=== PATIENT | male | born 1955 | race Caucasian/White ===

== ENCOUNTER 2018-12-25 15:55 | Emergency (ER) | payer OTHER ==
[2018-12-25] MEDS ORDERED: KETOROLAC 30 MG/ML INJ ONE (17:43)
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
== END 2018-12-25 18:57 | disposition home or self-care (01) ==
LOC: ER 15:55
DX: M54.17 Radiculopathy, lumbosacral region (principal); M54.6 Pain in thoracic spine; M54.2 Cervicalgia; I10 Essential (primary) hypertension; V49.40XA Driver injured in collision with unspecified motor vehicles in traffic accident, initial encounter; Z79.82 Long term (current) use of aspirin; Z88.0 Allergy status to penicillin
CPT/HCPCS: 72040; 72070; 72100; 96372; 99283

== ENCOUNTER 2022-11-20 23:06 | Emergency (ER) | payer OTHER ==
[2022-11-21] MEDS ORDERED: HYDROCODONE/APAP 7.5/325 MG TAB ONE (00:12)
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
[2022-11-21 02:22] VITALS: TEMP 98.5
[2022-11-21 02:26] VITALS: BP 137/97; O2SAT 97
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
== END 2022-11-21 02:09 | disposition home or self-care (01) ==
LOC: ER 23:06
DX: R29.91 Unspecified symptoms and signs involving the musculoskeletal system (principal); M54.2 Cervicalgia; I10 Essential (primary) hypertension; F17.290 Nicotine dependence, other tobacco product, uncomplicated; Z88.0 Allergy status to penicillin
CPT/HCPCS: 72125; 72128; 72131; 99284

== ENCOUNTER 2023-04-25 18:22 | Inpatient (IN) | payer OTHER ==
--- NOTE | 2023-04-25 19:39 | RAD REPORT ---
EXAM DESCRIPTION: RAD - Chest Single View - 04/25/2023 7:28 pm CLINICAL HISTORY: DYSPNEA Chest pain. FINDINGS: Portable technique limits examination quality. Moderate bilateral pulmonary opacities likely representing pulmonary edema. The heart is significantl y enlarged. No displaced fractures.Cervical hardware plate. IMPRESSION: Moderate CHF.
[2023-04-25] MEDS ORDERED: NITROGLYCERIN 1 GM PKT TD ONE (19:40)
[2023-04-25] MEDS ORDERED: MORPHINE 4 MG/ML SYR ONE (19:41)
[2023-04-25] MEDS ORDERED: FUROSEMIDE 40 MG/4 ML VIAL ONE (19:41)
[2023-04-25 19:56] LABS: Absolute Lymphocytes (CBC) 1.2 K/uL (0.7-4.9); Hematocrit 36.9 % (39.6-49.0); Lymphocytes % 13.3 % (15.3-44.8); Platelets 282 thou/uL (152-406); RBC Red Blood Cell Count 4.45 M/uL (4.33-5.43)
[2023-04-25 20:16] LABS: Protime INR 1.24
[2023-04-25 20:17] LABS: Albumin 3.1 g/dL (3.4-5.0); Bilirubin Total 0.8 mg/dL (0.2-1.0); Potassium 4.4 mEq/L (3.5-5.1); Protein, Total 6.6 g/dL (6.4-8.2); Troponin High Sensitivity 54.9 pg/mL (<58.9)
--- NOTE | 2023-04-25 20:29 | EDPHYS ---
Physician Documentation [facility] Name: Wu Junior Age: 67 yrs Sex: Male : 1955 Arrival Date: 04/25/2023 Time: 18:22 Bed 18 Private MD: ED Physician Christopher Charles HPI: 04/25 19:46 This 67 yrs old Male presents to ER via Ambulatory with complaints of Covid+, Breathing snw Difficulty, Swelling. 19:46 Onset: The symptoms/episode began/occurred acutely, and became worse today, and became snw persistent. Associated signs and symptoms: Pertinent positives: constipation, swelling. The patient has not experienced similar symptoms in the past. The patient has not recently seen a physician, and does not have an established primary care provider. Historical: - Allergies: 19:10 PENICILLINS; hb - PMHx: 19:10 Hypertension; Back pain; hb - PSHx: 19:10 neck; back; hb - Immunization history:: Adult Immunizations up to date. - Social history:: Smoking status: Patient denies any tobacco usage or history of. ROS: 19:45 Constitutional: Negative for fever, chills, and weight loss, Eyes: Negative for injury, snw pain, redness, and discharge, ENT: Negative for injury, pain, and discharge, Neck: Negative for injury, pain, and swelling, Cardiovascular: Negative for chest pain, palpitations, and edema, 19:45 Back: Negative for injury and pain, : Negative for injury, bleeding, discharge, and swelling, Skin: Negative for injury, rash, and discoloration, Neuro: Negative for headache, weakness, numbness, tingling, and seizure, Psych: Negative for depression, anxiety, suicide ideation, homicidal ideation, and hallucinations, 19:45 Respiratory: Positive for cough, shortness of breath, at rest. 19:45 Abdomen/GI: Positive for constipation, abdominal distension, 19:45 MS/extremity: Positive for swelling, of the pelvis, right leg and left leg, Exam: 19:02 Head/Face: Normocephalic, atraumatic. Eyes: Pupils equal round and reactive to light, snw extra-ocular motions intact. Lids and lashes normal. Conjunctiva and sclera are non-icteric and not injected. Cornea within normal limits. Periorbital areas with no swelling, redness, or edema. ENT: Nares patent. No nasal discharge, no septal abnormalities noted. Tympanic membranes are normal and external auditory canals are clear. Oropharynx with no redness, swelling, or masses, exudates, or evidence of obstruction, uvula midline. Mucous membranes moist. Neck: Trachea midline, no thyromegaly or masses palpated, and no cervical lymphadenopathy. Supple, full range of motion without nuchal rigidity, or vertebral point tenderness. No Meningismus. Chest/axilla: Normal chest wall appearance and motion. Nontender with no deformity. No lesions are appreciated. 19:02 Back: No spinal tenderness. No costovertebral tenderness. Full range of motion. MS/ Extremity: Pulses equal, no cyanosis. Neurovascular intact. Full, normal range of motion. Neuro: Awake and alert, GCS 15, oriented to person, place, time, and situation. Cranial nerves II-XII grossly intact. Motor strength 5/5 in all extremities. Sensory grossly intact. Cerebellar exam normal. Normal gait. 19:02 Constitutional: The patient appears awake, anxious, diaphoretic, obese, uncomfortable, moderate respiratory distress. usually on 1L O2 per NC 19:02 Cardiovascular: Rate: tachycardic, Heart sounds: normal, Edema: 3+ edema to level of pubic area, left upper thigh, left lower thigh, left knee, left midcalf, left ankle, right upper thigh, right lower thigh, right knee, right midcalf and right ankle, JVD: is noted bilaterally, 19:02 Respiratory: moderate respiratory distress is noted, Respirations: pursed lip breathing, shallow respirations, orthopnea, 19:02 Abdomen/GI: Inspection: distension, that is mild, obese Palpation: bloated, 19:02 Skin: Appearance: Color: dusky, Moisture: diaphoretic, Vital Signs: 19:06 BP 223 / 123; Pulse 79; Resp 24; Temp 98.9(O); Pulse Ox 96% on 2 lpm NC; Weight 79.38 hb kg; Height 5 ft. 9 in. ; Pain 5/10; 20:22 BP 164 / 113; Pulse 108; Resp 22 S; Pulse Ox 99% on 2 lpm NC; as6 21:20 BP 167 / 114; Pulse 103; Resp 19 S; Pulse Ox 96% on 2 lpm NC; as6 22:47 BP 148 / 109; Pulse 101; Resp 19 S; Pulse Ox 97% on 2 lpm NC; as6 19:06 Body Mass Index 25.84 (79.38 kg, 175.26 cm) hb 19:06 Pain Scale: Adult hb MDM: 18:51 Patient medically screened. snw 19:05 Differential diagnosis: viral Infection, bacterial infection, CHF. Data reviewed: vital snw signs, nurses notes, lab test result(s), EKG, radiologic studies. I considered the following discharge prescriptions or medication management in the emergency department Medications were administered in the Emergency Department. See AUG. 20:29 Management of patient was discussed with the following: Hospitalist: Dr. Irwin. snw Counseling: I had a detailed discussion with the patient and/or guardian regarding the historical points, exam findings, and any diagnostic results supporting the discharge/admit diagnosis, the presence of at least one elevated blood pressure reading (>120/80) during this emergency department visit, lab results, radiology results, the need for further work-up and treatment in the hospital. Response to treatment: the patient's symptoms have mildly improved after treatment. 04/25 19:02 Order name: Blood Culture Adult (2) snw 04/25 19:02 Order name: CBC with Diff; Complete Time: 20:12 snw 04/25 19:02 Order name: CMP; Complete Time: 20:18 snw 04/25 19:02 Order name: Lactate w/ 2H reflex if indic.; Complete Time: 20:18 snw 04/25 19:02 Order name: Protime (+inr); Complete Time: 20:18 snw 04/25 19:02 Order name: Ptt, Activated; Complete Time: 20:18 snw 04/25 19:02 Order name: Urinalysis w/ reflexes snw 04/25 19:02 Order name: COVID-19 SARS RT PCR; Complete Time: 20:33 snw 04/25 19:02 Order name: Troponin High Sensitivity; Complete Time: 20:18 snw 04/25 19:02 Order name: BNP; Complete Time: 20:18 snw 04/25 20:45 Order name: CBC with Automated Diff EDMS 04/25 20:45 Order name: CBC with Automated Diff EDMS 04/25 20:45 Order name: Comprehensive Metabolic Panel EDMS 04/25 20:45 Order name: Comprehensive Metabolic Panel EDVT 04/25 19:02 Order name: Chest Single View XRAY; Complete Time: 19:40 snw 04/25 19:02 Order name: EKG; Complete Time: 19:03 snw 04/25 19:02 Order name: Accucheck; Complete Time: 20:14 snw 04/25 19:02 Order name: Cardiac monitoring; Complete Time: 20:14 snw 04/25 19:02 Order name: EKG - Nurse/Tech; Complete Time: 20:14 snw 04/25 19:02 Order name: IV Saline Lock - Large Bore; Complete Time: 20:14 snw 04/25 19:02 Order name: Labs collected and sent; Complete Time: 20:14 snw 04/25 19:02 Order name: O2 Per Protocol; Complete Time: 20:14 snw 04/25 19:02 Order name: O2 Sat Monitoring; Complete Time: 20:14 snw 04/25 19:02 Order name: Vital Signs; Complete Time: 19:20 snw 04/25 19:41 Order name: Townsend; Complete Time: 21:57 snw EC:30 Rate is 98 beats/min. Rhythm is regular. AR interval is normal. T waves are Inverted in snw leads V5, V6. T waves are Flattened in leads I, II, III, aVF. Clinical impression: NSR w/ Non-specific ST/T Changes. Administered Medications: 19:30 Drug: Nitroglycerin Transdermal Ointment 2 % 1 inches Transdermal once Route: as6 Transdermal; Site: anterior chest wall; 23:16 Follow up: Response: No adverse reaction as6 19:40 Drug: Furosemide IVP 40 mg IVP once; give over 2 minutes Route: IVP; Site: right as6 antecubital; 23:16 Follow up: Response: No adverse reaction as6 19:40 Drug: morphine IVP or IV 4 mg IVP once over 4 mins Route: IVP; Infused Over: 4 mins; as6 Site: right antecubital; 23:16 Follow up: Response: No adverse reaction as6 Disposition Summary: 04/25/23 20:29 Hospitalization Ordered Notes: Hospitalization Status: Inpatient Admission snw Provider: Victor Manuel Irwin Location: Telemetry/MedSurg (Inpatient) snw Condition: Fair snw Problem: new snw Symptoms: have improved snw Bed/Room Type: Standard snw Room Assignment: 417(04/25/23 23:01) mw Diagnosis - SARS-associated coronavirus as the cause of diseases classified elsewhere snw - Acute diastolic (congestive) heart failure snw Forms: - Medication Reconciliation Form snw - SBAR form snw - Leadership Thank You Letter snw Critical care time excluding procedures: 04/26 09:14 Critical care time: Bedside Care: 10 minutes, Consultation: 20 minutes. Total time: 30 snw minutes Addendum: 04/29/2023 07:50 I was immediately available for consultation during this patient's visit. I did not e c2 personally see the patient or guide the patient's care.. Signatures: Dispatcher [employer] Jackie Padilla RN RN mw Waters, Shelly, ELECTRONIC VIDEO GAMES SERVICER-C ELECTRONIC VIDEO GAMES SERVICER-Csnw Rama Piña RN RN Chaz Person RN RN as6 Christopher Charles MD MD ec2 Corrections: (The following items were deleted from the chart) 04/25 23:01 20:29 snw mw
--- NOTE | 2023-04-25 20:29 | ER ---
Nurse's Notes [facility] Name: Wu Junior Age: 67 yrs Sex: Male : 1955 Arrival Date: 04/25/2023 Time: 18:22 Bed 18 Private MD: Diagnosis: SARS-associated coronavirus as the cause of diseases classified elsewhere;Acute diastolic (congestive) heart failure Presentation: 04/25 19:06 Chief complaint: Worsening SOB requiring increased oxygen use, cough, malaise,and fever hb x 1 week, recently tested COVID +. Coronavirus screen: Client presents with at least one sign or symptom that may indicate coronavirus-19. Provider contacted for isolation considerations. Ebola Screen: No symptoms or risks identified at this time. Initial Sepsis Screen: Does the patient meet any 2 criteria? No. Patient's initial sepsis screen is negative. Does the patient have a suspected source of infection? No. Patient's initial sepsis screen is negative. Risk Assessment: Do you want to hurt yourself or someone else? Patient reports no desire to harm self or others. Onset of symptoms was April 19, 2023. 19:06 Method Of Arrival: Ambulatory hb 19:06 Acuity: BRENDA 2 hb Historical: - Allergies: 19:10 PENICILLINS; hb - PMHx: 19:10 Hypertension; Back pain; hb - PSHx: 19:10 neck; back; hb - Immunization history:: Adult Immunizations up to date. - Social history:: Smoking status: Patient denies any tobacco usage or history of. Screenin:17 [facility] ED Fall Risk Assessment (Adult) Mobility Assist Device Used Yes (1 pt) as6 Score/Fall Risk Level 0 - 2 = Low Risk. Abuse screen: Denies threats or abuse. Denies injuries from another. Nutritional screening: No deficits noted. Tuberculosis screening: No symptoms or risk factors identified. Assessment: 19:30 General: Appears uncomfortable, ill, Behavior is calm, cooperative. Pain: Complains of as6 pain in back, right leg and left leg. Neuro: Level of Consciousness is awake, alert, obeys commands, Oriented to person, place, time, situation. Cardiovascular: Capillary refill < 3 seconds Patient's skin is warm and dry. Edema is 2+ to left midcalf, left ankle, left foot, left toes, right midcalf, right ankle, right foot and right toes pitting to left midcalf, left ankle, left foot, left toes, right midcalf, right ankle, right foot and right toes. Respiratory: Reports shortness of breath Airway is patent Trachea midline Respiratory effort is even, labored, Respiratory pattern is regular, symmetrical, Breath sounds with crackles bilaterally. GI: Abdomen is round. : Reports inability to void. EENT: No deficits noted. No signs and/or symptoms were reported regarding the EENT system. Derm: Skin is intact. Musculoskeletal: Circulation, motion, and sensation intact. Vital Signs: 19:06 BP 223 / 123; Pulse 79; Resp 24; Temp 98.9(O); Pulse Ox 96% on 2 lpm NC; Weight 79.38 hb kg; Height 5 ft. 9 in. ; Pain 5/10; 20:22 BP 164 / 113; Pulse 108; Resp 22 S; Pulse Ox 99% on 2 lpm NC; as6 21:20 BP 167 / 114; Pulse 103; Resp 19 S; Pulse Ox 96% on 2 lpm NC; as6 22:47 BP 148 / 109; Pulse 101; Resp 19 S; Pulse Ox 97% on 2 lpm NC; as6 19:06 Body Mass Index 25.84 (79.38 kg, 175.26 cm) hb 19:06 Pain Scale: Adult hb ED Course: 18:27 Patient arrived in ED. mr 18:34 Jaclyn Bonita, AUDREY-C is PHCP. snw 18:34 Christopher Charles MD is Attending Physician. snw 19:09 Triage completed. hb 19:10 Arm band placed on. hb 19:20 Chaz Person, RN is Primary Nurse. as6 19:30 Chest Single View XRAY In Process Unspecified. EDMS 19:30 Inserted saline lock: 18 gauge in right antecubital area, using aseptic technique. as6 Blood collected. 20:16 Bed in low position. Call light in reach. as6 20:28 Victor Manuel Irwin MD is Hospitalizing Provider. snw 21:57 Townsend cath inserted, using sterile technique, 16 Fr., by ne, balloon inflated, to as6 gravity drainage, urine specimen collected. returned clear yellow urine. Patient tolerated well. 21:57 No provider procedures requiring assistance completed. Patient admitted, IV remains in as6 place. 22:47 Provided Education on: need for admit. as6 Administered Medications: 19:30 Drug: Nitroglycerin Transdermal Ointment 2 % 1 inches Transdermal once Route: as6 Transdermal; Site: anterior chest wall; 23:16 Follow up: Response: No adverse reaction as6 19:40 Drug: Furosemide IVP 40 mg IVP once; give over 2 minutes Route: IVP; Site: right as6 antecubital; 23:16 Follow up: Response: No adverse reaction as6 19:40 Drug: morphine IVP or IV 4 mg IVP once over 4 mins Route: IVP; Infused Over: 4 mins; as6 Site: right antecubital; 23:16 Follow up: Response: No adverse reaction as6 Medication: 20:16 VIS not applicable for this client. as6 Outcome: 20:29 Decision to Hospitalize by Provider. [facility] 22:47 Condition: stable as6 22:47 Instructed on the need for admit, 23:16 Admitted to Tele accompanied by tech, via stretcher, room 417, with oxygen, with chart, as6 23:32 Patient left the ED. as6 Signatures: Dispatcher [employer] EDMS Bonita Anaya, AUDREY-C ASL INTERPRETER-Stephanie Nieto, Reg Reg mr Rama Piña, Chaz Farias RN, RN RN as6
[2023-04-25] MEDS ORDERED: ONDANSETRON 4 MG/2 ML VIAL IV PRN (20:36)
--- NOTE | 2023-04-25 20:46 | P.HP ---
Certification for Inpatient Patient admitted to: Inpatient With expected LOS: >2 Midnights Patient will require the following post-hospital care: None Practitioner: I am a practitioner with admitting privileges, knowledge of patient current condition, hospital course, and medical plan of care. Services: Services provided to patient in accordance with Admission requirements found in Title 42 Section 412.3 of the Code of Federal Regulations Patient History Date of Service: 04/25/23 Reason for admission: SOB History of Present Illness: 67 yrs old Male with hypertension chronic back pain presents to ER via Ambulatory with complaints of shortness of breath after testing positive for Covid, Denies any chest pain. Patient states that she was tested positive for COVID in a outside facility. Patient started having shortness of breath which has been progressively worsening over the last few days. Denies any fever or chills. No chest pain. Associated with lower extremities swelling and constipation. Patient denies any nausea vomiting or diarrhea. No sick contacts. Patient was assessed in the ER and was found to have CHF exacerbation along with accelerated hypertension. The COVID test done in the ER was negative. X-ray chest showing CHF Home medications list reviewed: Yes - Past Medical/Surgical History Past Medical History: Reviewed- Non-Contributory -: Hypertension Past Surgical History: Reviewed- Non-Contributory - Family History Family History: Reviewed- Non-Contributory - Social History Smoking Status: Never smoker Review of Systems 10-point ROS is otherwise unremarkable General: Weakness, Malaise Eyes: Unremarkable ENT: Unremarkable Respiratory: Shortness of Breath, SOB with Excertion, Unremarkable Cardiovascular: Unremarkable Gastrointestinal: Unremarkable Genitourinary: Unremarkable Musculoskeletal: Unremarkable Integumentary: Unremarkable Neurological: Unremarkable Physical Examination - Vital Signs Temperature: 98.8 F Blood Pressure: 164/108 Pulse: 78 Respirations: 18 Pulse Ox (%): 96 - Physical Exam General: Alert, Oriented x3, Mild distress HEENT: Atraumatic, Normocephalic Neck: Supple, 2+ carotid pulse no bruit Respiratory: Diminished, Crackles/rales, Expiratory wheezes Cardiovascular: Normal pulses, Regular rate/rhythm, Normal S1 S2, Edema Capillary refill: <2 Seconds Gastrointestinal: Soft and benign, W/out hepatosplenomegaly, No ascites, No guarding Musculoskeletal: No clubbing, No swelling Integumentary: No rashes Neurological: Normal speech, Normal strength at 5/5 x4 extr, Cranial nerves 3-12 intact, Normal reflexes 2+, Normal affect Lymphatics: No axilla or inguinal lymphadenopathy Urinary: Townsend catheter - Studies Laboratory Data (last 24 hrs) 04/25/23 04/25/23 04/25/23 19:43 19:43 19:43 WBC 8.90 Hgb 12.1 L Hct 36.9 L Plt Count 282 PT 13.6 H INR 1.24 APTT 30.4 Sodium 135 L Potassium 4.4 BUN 25 H Creatinine 1.62 H Glucose 106 Total Bilirubin 0.8 AST 21 ALT 33 Alkaline Phosphatase 88 Assessment and Plan - Problems (Diagnosis) (1) Acute exacerbation of CHF (congestive heart failure) Current Visit: Yes Status: Acute Plan: Aggressive diuresis Monitor closely under telemetry We will get an echocardiogram BNP elevated We will start on Antifailure medications including Coreg Qualifiers: Heart failure type: combined systolic and diastolic Qualified Code(s): I50.43 - Acute on chronic combined systolic (congestive) and diastolic (congestive) heart failure (2) Accelerated hypertension Current Visit: Yes Status: Acute Plan: Patient started on Coreg and hydralazine p.o. IV hydralazine as needed Monitor closely in telemetry (3) Hyponatremia Current Visit: Yes Status: Acute Plan: Monitor electrolytes and replace accordingly (4) SANTINO (acute kidney injury) Current Visit: Yes Status: Acute Plan: Renal parameters monitored Avoid NSAIDs and other nephrotoxic medications We will hold ARB versus CHANTALE inhibitor for now (5) COVID Current Visit: Yes Status: Acute Plan: COVID test negative in ER Patient states that she has been tested positive as an outpatient Monitor closely (6) Acute hypoxic respiratory failure Current Visit: Yes Status: Acute Plan: On oxygen supplementation We will try to wean down oxygen requirement Bronchodilators as needed continue diuretics Discharge Plan: Home Plan to discharge in: 48 Hours - Advance Directives Does patient have a Living Will: No Does patient have a Durable POA for Healthcare: No - Code Status/Comfort Care Code Status: Full Code Physician Review: Patient Assessed, Agree with Above Assessment and Plan Time Spent Managing Pts Care (In Minutes): 45
[2023-04-25 23:01] LABS: Specific Gravity 1.008 (1.005-1.030); Urine Bacteria <20 /HPF (<20); Urine Bilirubin NEGATIVE (Negative); Urine Blood Negative (Negative); Urine Clarity Clear (Clear); Urine Color Colorless (Yellow); Urine Glucose NEGATIVE (Negative); Urine Mucus Slight /HPF (None Seen); Urine Protein 1+ (Negative); Urine RBC <5 /HPF (None Seen); Urine Urobilinogen Normal (Normal); Urine pH 5.5 (5.0-7.0)
[2023-04-26] MEDS: HYDRALAZINE HCL 25 MG TABLET PO SCH ×4 (00:51→21:32)
[2023-04-26] MEDS: FUROSEMIDE 40 MG/4 ML VIAL IV SCH ×3 (00:51→17:59)
[2023-04-26] MEDS: carvediloL 6.25 MG TAB PO SCH ×3 (00:51→21:32)
[2023-04-26 04:41] VITALS: BMI 25.8
[2023-04-26 07:27] LABS: Absolute Lymphocytes (CBC) 0.7 K/uL (0.7-4.9); Hematocrit 35.5 % (39.6-49.0); Lymphocytes % 6.6 % (15.3-44.8); MCV 83.8 fL (80-100); MPV 7.9 fL (7.6-11.3); Platelets 282 thou/uL (152-406); RBC Red Blood Cell Count 4.24 M/uL (4.33-5.43)
[2023-04-26 07:45] LABS: Albumin 2.9 g/dL (3.4-5.0); Bilirubin Total 0.8 mg/dL (0.2-1.0); Protein, Total 6.1 g/dL (6.4-8.2)
--- NOTE | 2023-04-26 10:04 | P.PN ---
Date of Service: 04/26/23 Subjective: Feeling much better today compared to yesterday; breathing more comfortable, swelling improving short of breath overnight per report; O2 was increased to 4L overnight; back down to 2L this morning tested positive for covid ~2 weeks ago; negative in ED BP improving reports suddenly developed swelling from abdomen down to feet after fleet enema this past Monday ROS: 10 point ROS as noted above, otherwise negative Physical Exam: GEN: Alert, oriented, NAD HEENT: Normal conjunctiva, sclera anicteric CV: Regular rate and rhythm, 2+ BLE edema up to thighs bilaterally Pulm: Non-labored respirations on 2L NC, diminished at bases b/l, +b/l crack les/rales ABD: Soft, non-tender, non-distended Neuro: Normal speech, normal affect Townsend in place; placed 04/25 in ED vitals reviewed Problem List: Acute CHF, new Essential Hypertension, with HTN urgency SANTINO Recent COVID-19 Positive Chronic back pain Constipation Acute CHF , new Essential Hypertension, with htn urgency reports swelling suddenly developed after Fleet enema a few days prior to admission; denies prior CHF diagnosis / swelling CXR (04/25): moderate CHF trend troponins; monitor on tele BNP: [id number] Cardiology consulted Continue IV lasix change to BID from TID for now, monitor response/ renal function Echo done 04/26; pending report on 2L NC; wean oxygen as tolerated Townsend placed 04/25 in ED for accurate I/O's Breathing/swelling improving confirm home meds, restart as appropriate avoid nephrotoxic meds for now SANTINO Cr 1.62 -> 1.71 denies renal history. but does report >10yrs ago having kidney stones, no recurrence. continue to monitor renal function nephrology consulted Recent COVID-19 Positive Patient reports he tested positive for covid ~1 week ago; negative today in ER Code: Full Dispo: Home, ~2 days Pending further improvement
--- NOTE | 2023-04-26 20:53 | RAD REPORT ---
EXAM DESCRIPTION: US - Renal Ultrasound-Complete - 04/26/2023 8:38 pm CLINICAL HISTORY: keyla Flank pain COMPARISON: Spine Lumbar Wo Con dated 11/21/2022 FINDINGS: The right kidney is highly echogenic. The right kidney is significantly atrophic. The left kidney measures 13.2 x 6.2 x 5.7 cm. No hydronephrosis, focal mass or perinephric fluid. The urinary bladder is incompletely distended without gross abnormality seen. IMPRESSION: Highly echogenic and atrophic right kidney indicating medical renal disease and likely a lack of function. The left kidney has a normal appearance.
[2023-04-27 07:03] LABS: Absolute Lymphocytes (CBC) 1.3 K/uL (0.7-4.9); Hematocrit 36.5 % (39.6-49.0); Lymphocytes % 17.9 % (15.3-44.8); MPV 8.1 fL (7.6-11.3); Platelets 282 thou/uL (152-406); RBC Red Blood Cell Count 4.34 M/uL (4.33-5.43)
[2023-04-27 07:15] LABS: Magnesium 2.4 mg/dL (1.6-2.4); Potassium 3.8 mEq/L (3.5-5.1)
--- NOTE | 2023-04-27 10:09 | P.PN ---
Date of Service: 04/27/23 Subjective: Feeling better today Breathing okay on room air at rest; worsened with talking/exertion no acute events overnight swelling in legs slowly improving afebrile ROS: 10 point ROS as noted above, otherwise negative Physical Exam: GEN: Alert, oriented, NAD HEENT: Normal conjunctiva, sclera anicteric CV: Regular rate and rhythm, 1+ BLE edema up to knee bilaterally Pulm: Non-labored respirations on room air at rest, diminished at bases b/l, +b/l crackles/rales ABD: Soft, non-tender, non-distended Neuro: Normal speech, normal affect Townsend in place; placed 04/25 in ED vitals reviewed Problem List: Acute diastolic CHF, new Essential Hypertension, with HTN urgency Severe Pulmonary Hypertension SANTINO Recent COVID-19 Positive Chronic back pain Constipation Acute diastolic CHF, new Essential Hypertension, with HTN urgency Severe Pulmonary Hypertension reports swelling suddenly developed after Fleet enema a few days prior to admission; denies prior CHF diagnosis / swelling CXR (04/25): moderate CHF trend troponins; monitor on tele BNP: echo (04/26): 42% EF, moderate concentric left ventricular hypertrophy, mod diastolic dysfunction, left atrial enlargement, mild TR, mild MR, mild pulmonic insufficiency, moderate aortic insufficiency, severe pulm htn Cardiology consulted Discussed case over phone with Dr. Ortiz, to consider for right and left heart cath for further evaluation - PHTN / CAD Continue IV lasix BID change to BID from TID 04/26, monitor response/ renal function Townsend placed 04/25 in ED for accurate I/O's Breathing/swelling improving confirm home meds, restart as appropriate avoid nephrotoxic meds for now SANTINO Cr 1.71 -> 1.91 (04/27) denies renal history. but does report >10yrs ago having kidney stones, no recu rrence. later said had "right kidney decreased function" renal u/s (04/26): Highly echogenic and atrophic right kidney indicating medical renal disease and likely a lack of function. continue to monitor renal function nephrology consulted bicarb drip and prep for possible cath Recent COVID-19 Positive Patient reports he tested positive for covid ~1 week ago; negative today in ER Code: Full Dispo: Home, ~2 days Pending further improvement
--- NOTE | 2023-04-27 11:04 | ECHO ---
HEIGHT: 5 ft 9 in WEIGHT: 175 lb 0 oz DATE OF STUDY: 04/26/[address]: Loi Heck MD 2-DIMENSIONAL: YES M.MODE: YES DOPPLER: YES COLOR FLOW: YES TDS: PORTABLE: YES DEFINITY: BUBBLE STUDY: DIAGNOSIS: CONGESTIVE HEART FAILURE, ELAVUATE FUNCTION/ VALVES CARDIAC HISTORY: CATHERIZATION: NO SURGERY: NO PROSTHETIC VALVE: NO PACEMAKER: NO MEASUREMENTS (cm) DIASTOLIC (NORMALS) SYSTOLIC (NORMALS) IVSd 1.6 (0.6-1.2) LA Diam 4.1 (1.9-4.0) LVEF 45% LVIDd 4.1 (3.5-5.7) LVIDs 3.2 (2.0-3.5) %FS 22% LVPWd 1.7 (0.6-1.2) Ao Diam 2.9 (2.0-3.7) 2 DIMENSIONAL ASSESSMENT: RIGHT ATRIUM: NORMAL LEFT ATRIUM: ENLARGED RIGHT VENTRICLE: NORMAL LEFT VENTRICLE: LEFT VENTRICULAR HYPERTROPHY TRICUSPID VALVE: MILD TRICUSPID REGURGITATION MITRAL VALVE: MILD MITRAL REGURGITATION PULMONIC VALVE: MILD PULMONIC INSUFFICIENCY AORTIC VALVE: CALCIFIED, NO AORTIC STENOSIS PERICARDIAL EFFUSION: NONE AORTIC ROOT: NORMAL LEFT VENTRICULAR WALL MOTION: MILD GLOBAL HYPOKINESIS DOPPLER/COLOR FLOW: SEE BELOW COMMENTS: 1. MILDLY DEPRESSED LEFT VENTRICULAR EJECTION FRACTION 45-50% WITH MILD GLOBAL HYPOKINESIS 2. MODERATE CONCENTRIC LEFT VENTRICULAR HYPERTROPHY 3. MODERATE DIASTOLIC DYSFUNCTION 4. LEFT ATRIAL ENLARGEMENT 5. MILD TRICUSPID REGURGITATION, MITRAL REGURGITATION, PULMONIC INSUFFICIENCY 6. MODERATE AORTIC INSUFFICIENCY 7. SEVERE PULMONARY HYPERTENSION WITH RIGHT VENTRICULAR SYSTOLIC PRESSURE GREATER THAN 60 mmHg TECHNOLOGIST: MICHELLE VITAL
[2023-04-27] MEDS: carvediloL 6.25 MG TAB PO SCH ×2 (11:16→21:05)
[2023-04-27] MEDS: FUROSEMIDE 40 MG/4 ML VIAL IV SCH ×2 (11:17→17:54)
[2023-04-27] MEDS: HYDRALAZINE HCL 25 MG TABLET PO SCH ×3 (11:21→21:05)
[2023-04-27] MEDS: ACETAMINOPHEN 500 MG TAB PO PRN ×2 (11:22→21:04)
--- NOTE | 2023-04-27 16:39 | CON ---
Date of Consultation: 04/27/2023 Reason For Consultation: Elevated BUN and creatinine, anasarca. History Of Present Illness: This is a pleasant 67-year-old gentleman with significant past medical h istory of hypertension, nephrolithiasis, questionable of poor function right kidney as by the patient , the patient had no other kidney history before. No cardiac history according to the patient. The patient was in his regular state of health. Apparently, he went to the pharmacy to obtain his COVID vaccine. Pharmacy found him has some symptoms, tested positive for COVID so vaccine was canceled and the patient sent home. The patient at home started having some constipation according to the patien t with abdominal pain. For that reason, started using [id number] remedy including Dulcolax, Mi raLAX without any success and eventually he used Fleet enema. After the Fleet enema by couple of mainor rs the patient started having increased abdominal girth, swelling in the scrotum and lower extremity according to him in couple of hours. The patient denied taking any nonsteroidal. No contrast. No r ecent change in his medication. The patient upon arrival to the hospital found to have elevation in BUN and creatinine. For that reason, we have been consulted. Creatinine came as 1.6 with GFR of 47. Gradually creatinine trended up to 1.9 with GFR of 38. For that reason, we have been consulted. R eviewing the record for the patient, as I mentioned, the patient known to have poor perfusion or poor function right kidney since has nephrolithiasis, but does not know any other abnormality in the kidn ey and he never followed up with shipping lead. Back in 2017, creatinine 1.1 with GFR of 63. Past Medical History: 1.Nephrolithiasis, status post lithotripsy back in 2007. 2.Hypertension. 3.Congestive heart failure, has been confirmed with echocardiogram in this admission with ejection f raction of 45%, with severe pulmonary hypertension. 4.COVID. Past Surgical History: Includes lithotripsy. Family History: Positive for hypertension. Social History: Ex-smoker. Active alcohol. Denied drug abuse. Review of Systems: Head and Neck: No red eye. No ear pain. GI: Has constipation. : Has increased swelling in scrotum. Mainstreaming Facilitator: Not applicable. Respiratory: Has shortness of breath. Cardiovascular: Has leg swelling, has orthopnea. Endocrine: No polydipsia. Skin: No rash. Neuro: No weakness. Musculoskeletal: Generalized fatigue. Physical Examination: Vital Signs: When I saw the patient, blood pressure 116/75, pulse of 71, afebrile. Chest: Faint rales bilateral base. Heart: S1, S2, systolic murmur. Abdomen: Soft, nontender. Extremities: Plus edema bilaterally. Neurologic: Alert, oriented x3. Nonfocal. Lab Data: Back in 2017, creatinine 1.1. GFR of 63. Upon admission, sodium 135, potassium 4.4, bica rb 23, BUN 25, creatinine 1.6, GFR of 47. Today lab data, sodium 136, potassium 3.8, bicarb 28, BUN 34, creatinine 1.9, GFR of 38. Calcium 8.5, magnesium 2.4. BNP 21,189. LDL 146. Urinalysis, speci fic gravity of 1.008. Positive for cast. No leukouria or hematuria. +1 protein. Chest x-ray showi ng cardiomegaly with congestion, bilateral. Renal ultrasound showing atrophy right kidney with byron l size on the left kidney. Echocardiogram, ejection fraction of 45% with severe pulmonary hypertensi on. Assessment And Plan: 1.Acute kidney injury on chronic kidney disease, solitary kidney atrophy right kidney, normal left k idney 13.2, with acute kidney injury, possible secondary to AIN, questionable of Fleet induced agonis t. Send for phosphorus level and urine eosinophil. We will send for workup and we will follow up th e patient. I am going to start the patient on aggressive hydration for the time being. Possible of cardiorenal, we will continue on the diuresis and we will monitor. 2.The patient may need cardiac cath as by Cardiology, with current kidney function possible risk of continued worsening kidney function. I am going to go ahead and place the patient on Mucomyst and so dium bicarb. I discussed with the patient risks, benefits, alternatives and the risk of contrast exp osure. We will follow up. 3.Hypertension, controlled, optimal, continue diuresis. 4.CHF exacerbation with cardiorenal syndrome. I agree with diuresis. We will avoid any IV fluid. 5.Pulmonary hypertension, possible secondary to smoking. Follow up with primary. 6.Renal vascular disease with atrophy right kidney. We will follow up with Cardiology during the ca rdiac cath if they can run on the renal artery angiogram to evaluate the renal artery and we will fol low up, giving the over volume. 7.Hyponatremia, stable. Dilutional. Continue diuresis. Thank you Dr. Heck for allowing us to participate in the care of your patient. Time spent examining the patient [id number], reviewing data, lab and radiology, placing order, discussing the case with the patient, discussing the case with the team members including hospitalist and staff and nursing s taff more than 35 minutes. CALLIE Voice ID: [id number] Report ID: [id number]
--- NOTE | 2023-04-27 18:17 | P.CNS ---
Date of Consult: 04/27/23 Reason for Consult: CHF Chief Complaint: SOB History of Present Illness: This is a very pleasant 67-year-old male with past medical history of hypertension who is here with worsening shortness of breath and lower extremity edema. He had occasional chest pain on and off in the past described as a pressure but he said he never paid attention to it. He has history of chronic tobacco use on and off for many years and quit in 2017. Patient was found to have SANTINO on CKD and volume overloaded. Echocardiogram showed mildly reduced EF severe pulmonary hypertension moderate AI cardiology was consulted. Patient feels much better since he is being diuresed Allergies amoxicillin Adverse Reaction (Verified 04/26/23 03:17) Hives/Rash Penicillins Adverse Reaction (Verified 04/26/23 03:17) Hives/Rash shrimp Adverse Reaction (Verified 04/26/23 03:17) GI pain Home Medications: Amlodipine [Norvasc*] 10 mg PO 04/26/23 Losartan Potassium [Cozaar] 100 PO DAILY 04/26/23 Rizatriptan Benzoate [Rizatriptan] 10 PO TID 04/26/23 Topiramate [Topamax] 25 PO DAILY 04/26/23 hydroCHLOROthiazide [Hydrochlorothiazide] 25 PO DAILY 04/26/23 - Past Medical/Surgical History -: Hypertension -: Back surgery--1979 -: Neck sugery--2016 - Family History Father Medical History: Hypertension, Diabetes - Social History Smoking Status: Current some day smoker Alcohol use: No CD- Drugs: No Caffeine use: No Place of Residence: Home Review of Systems 10-point ROS is otherwise unremarkable Physical Examination Temp Pulse Resp BP Pulse Ox 98.0 F 61 16 158/77 H 98 04/27/23 16:00 04/27/23 17:54 04/27/23 16:00 04/27/23 17:54 04/27/23 16:00 General: Oriented x3 HEENT: Atraumatic Neck: Supple Respiratory: Clear to auscultation bilaterally Cardiovascular: Regular rate/rhythm, Edema, Diastolic murmur Gastrointestinal: Soft and benign Neurological: Normal speech Conclusions/Impression: 1. CHF: Acute, mildly reduced EF, continue with IV Lasix appreciate nephrology input due to to the SANTINO continue carvedilol. Patient will require ischemic work-up with left heart catheterization and right heart catheterization as he has severe pulmonary hypertension by echo 2. Pulmonary hypertension: He has severe hypertension by echo we will do a right heart catheterization 3. Moderate AI: We will get coronary angiogram as above may need CT of the chest once kidney improved to rule out aneurysm and at some point he may need a DAIJA 4. SANTINO: Unknown baseline creatinine is improving appreciate nephrology 5. Hypertension: Continue carvedilol
[2023-04-28] MEDS ORDERED: NA CHLORIDE 0.9% 1,000 ML IV SCH
[2023-04-28] MEDS: HYDRALAZINE HCL 20 MG/ML VIAL IV PRN (01:40)
--- NOTE | 2023-04-28 08:25 | P.PN ---
Date of Service: 04/28/23 Subjective: Feeling better today Swelling continues to improve Breathing okay on room air tentative plan for left & right heart cath today no acute events overnight ROS: 10 point ROS as noted above, otherwise negative Physical Exam: GEN: Alert, oriented, NAD HEENT: Normal conjunctiva, sclera anicteric CV: Regular rate and rhythm, 1+ BLE edema up to knee bilaterally Pulm: Non-labored respirations on room air at rest, diminished at bases b/l, +b/l crackles/rales ABD: Soft, non-tender, non-distended Neuro: Normal speech, normal affect Townsend in place; placed 04/25 in ED vitals reviewed Problem List: Acute diastolic CHF, new Essential Hypertension, with HTN urgency Severe Pulmonary Hypertension SANTINO on CKD Recent COVID-19 Positive Chronic back pain Constipation Acute diastolic CHF, new Essential Hypertension, with HTN urgency Severe Pulmonary Hypertension Recent COVID-19 Positive reports swelling suddenly developed after Fleet enema a few days prior to admission; denies prior CHF diagnosis / swellingf suspect recent covid infection may have played a role CXR (04/25): moderate CHF troponins negative; monitor on tele BNP: echo (04/26): 42% EF, moderate concentric left ventricular hypertrophy, mod diastolic dysfunction, left atrial enlargement, mild TR, mild MR, mild pulmonic insufficiency, moderate aortic insufficiency, severe pulm htn Cardiology consulted Discussed case over phone with Dr. Ortiz, NPO for tentative left & right heart cath today (04/28) to further eval PHTN/CAD Continue IV lasix BID change to BID from TID 04/26, monitor response/ renal function Townsend placed 04/25 in ED for accurate I/O's continue for now Breathing/swelling improving confirm home meds, restart as appropriate avoid nephrotoxic meds for now pulm consulted SANTINO on CKD Cr 1.91 -> 1.89 (04/28) denies renal history. but does report >10yrs ago having kidney stones, no recurrence. later said had "right kidney decreased function" renal u/s (04/26): Highly echogenic and atrophic right kidney indicating medical renal disease and likely a lack of function. continue to monitor renal function nephrology consulted bicarb drip and prep for possible cath Continue IV fluids Code: Full Dispo: Home, ~2-3 days Pending further improvement, left & right heart cath
[2023-04-28] MEDS: FUROSEMIDE 40 MG/4 ML VIAL IV SCH ×2 (09:34→16:37)
[2023-04-28] MEDS: HYDRALAZINE HCL 25 MG TABLET PO SCH ×3 (09:35→21:00)
[2023-04-28] MEDS: carvediloL 6.25 MG TAB PO SCH ×2 (09:35→21:00)
[2023-04-28 09:58] LABS: Magnesium 2.5 mg/dL (1.6-2.4); Phosphorus 3.5 mg/dL (2.5-4.9)
--- NOTE | 2023-04-28 14:32 | P.PN ---
Subjective Date of Service: 04/28/23 Chief Complaint: SOB Subjective: No new changes Physical Examination - Vital Signs Temperature: 97.8 F Blood Pressure: 132/88 Pulse: 76 Respirations: 18 Pulse Ox (%): 96 - Physical Exam General: Other (appears as his stated age) HEENT: Atraumatic, Normocephalic Neck: Supple Respiratory: Other (symmetric chest expansion) Cardiovascular: No rubs, No murmurs Gastrointestinal: Soft and benign Musculoskeletal: No clubbing Integumentary: No warmth Neurological: Normal tone Urinary: Other (no bladder distention) External genitalia: Deferred Rectal: Deferred Assessment And Plan - Plan 1. Acute kidney injury on chronic kidney disease, solitary kidney atrophy right kidney, normal left kidney 13.2, with acute kidney injury, r/o AIN, SCr plateaued at 1.9. Encourage po fluid intake. 2. Severe pulmo Htn, unclear etiology. For LHC/RHC today. Hx of cig smoking & recent covid infxn. F/u chest CT scan. 3. Hypertension, controlled, optimal, continue diuresis. 4. CHF exacerbation with cardiorenal syndrome. Cont lasix IV bid. Swithc NS gtt to D5W gtt at 75 cc/hr. Avoid Na-containing IV fluid. Use D5W not NS, for IV carrier fluid. Do not limit po fluid intake unless serum Na drops < 130 meq/L. F/u random urine chem to determine need for lc abbie therapy. 5. Renal vascular disease with atrophy right kidney. We will follow up with Cardiology during the cardiac cath if they can run on the renal artery angiogram to evaluate the renal artery and we will follow up, giving the over volume. 6. Hyponatremia. Monitor. Physician Review: Patient Assessed, Agree with Above Assessment and Plan
[2023-04-28] MEDS: D5W 1,000 ML IV SCH (16:38)
--- NOTE | 2023-04-28 18:49 | RAD REPORT ---
EXAM DESCRIPTION: CT - Thorax Wo Con - 04/28/2023 4:22 pm CLINICAL HISTORY: SOB, asses for pna, ILD, pulmo Htn, pulmo fibrosis COMPARISON: Chest Single View dated 04/25/2023; Renal Ultrasound-Complete dated 04/26/2023 TECHNIQUE: Axial thin cut images of the chest were obtained without IV contrast. Multiplanar reforma ts were generated and reviewed. All CT scans are performed using dose optimization technique as appropriate and may include automated exposure control or mA/KV adjustment according to patient size. FINDINGS: Central interstitial prominence with central predominant geographic ground-glass opacities . Trace bilateral effusions. No pleural thickening or pleural effusion. No pneumothorax. Marked cardiomegaly. Mildly prominent mediastinal lymph nodes, largest in the subcarinal region measu ring 2.1 cm in short axis. No suspicious hilar adenopathy within limits of noncontrast evaluation. Pr ominent caliber of the pulmonary artery, may indicate underlying pulmonary hypertension. No other sig nificant aortic or pulmonary artery findings. Assessment is limited in the absence of IV contrast. No chest wall mass or abnormal axillary lymphadenopathy. Evaluation of the solid abdominal structures reveals small opaque stone near the neck of the gallblad stanley. No other suspicious findings. Atrophic changes of the right kidney. IMPRESSION: Findings suggestive of mild pulmonary edema, with trace bilateral layering effusions may be related to cardiogenic origin. Marked cardiomegaly. Mildly prominent mediastinal lymph nodes as above, nonspecific, may be of reactive or inflammatory na ture.
[2023-04-29] MEDS: D5W 1,000 ML IV SCH (07:03)
[2023-04-29 07:25] LABS: Magnesium 2.3 mg/dL (1.6-2.4); Potassium 3.6 mEq/L (3.5-5.1)
[2023-04-29] MEDS: carvediloL 6.25 MG TAB PO SCH ×2 (08:33→19:12)
[2023-04-29] MEDS: FUROSEMIDE 40 MG/4 ML VIAL IV SCH ×2 (08:36→16:58)
--- NOTE | 2023-04-29 08:39 | P.PN ---
Date of Service: 04/29/23 Subjective: no acute events overnight no chest pain; breathing okay on 2L NC at rest swelling in legs continue to slowly improve tentative plan for left & right heart cath early next week; ~Monday BM today; +flatus ROS: 10 point ROS as noted above, otherwise negative Physical Exam: GEN: Alert, oriented, NAD HEENT: Normal conjunctiva, sclera anicteric CV: Regular rate and rhythm, 1-2+ BLE edema up to knee bilaterally Pulm: Non-labored respirations on 2L NC, diminished at bases b/l, +b/l crackles/rales ABD: Soft, non-tender, non-distended Neuro: Normal speech, normal affect Townsend in place; placed 04/25 in ED vitals reviewed Problem List: Acute diastolic CHF, new Essential Hypertension, with HTN urgency Severe Pulmonary Hypertension SANTINO on CKD Recent COVID-19 Positive Chronic back pain Constipation Acute diastolic CHF, new Essential Hypertension, with HTN urgency Severe Pulmonary Hypertension Recent COVID-19 Positive reports swelling suddenly developed after Fleet enema a few days prior to admission; denies prior CHF diagnosis / swelling suspect recent covid infection may have played a role CXR (04/25): moderate CHF troponins negative; monitor on tele BNP: 50321 -> 6612 (04/29) echo (04/26): 42% EF, moderate concentric left ventricular hypertrophy, mod diastolic dysfunction, left atrial enlargement, mild TR, mild MR, mild pulmonic insufficiency, moderate aortic insufficiency, severe pulm htn Cardiology consulted Discussed case over phone with Dr. Ortiz, plan for left & right heart cath to further eval PHTN/CAD Tentatively early next week; ~Wednesday 05/02 Continue IV lasix BID Townsend placed 04/25 in ED for accurate I/O's continue for now Breathing/swelling improving confirm home meds, restart as appropriate avoid nephrotoxic meds for now pulm consulted SANTINO on CKD Cr 1.89 -> 1.63 04/29) denies renal history. but does report >10yrs ago having kidney stones, no recurrence. later said had "right kidney decreased function" renal u/s (04/26): Highly echogenic and atrophic right kidney indicating medical renal disease and likely a lack of function. continue to monitor renal function nephrology consulted IV fluids dc'd (04/29) continue IV lasix BID Code: Full Dispo: Home, ~2-3 days pending left & right heart cath; early next week ~Monday (05/02)
[2023-04-29] MEDS: HYDRALAZINE HCL 25 MG TABLET PO SCH ×3 (08:44→20:49)
[2023-04-29] MEDS ORDERED: POTASSIUM CL SA 10 MEQ TAB PO ONE (10:40)
--- NOTE | 2023-04-29 11:04 | P.CNS ---
Date of Consult: 04/22/23 Reason for Consult: Pulmonary hypertension Chief Complaint: SOB History of Present Illness: Patient is 67 years of age I was asked to evaluate for pulmonary hypertension admitted for shortness of breath that tested positive for COVID as an outpatient denies any fever and chills no prior history of coronary artery disease some lower extremity edema denies nausea and vomiting Allergies amoxicillin Adverse Reaction (Verified 04/26/23 03:17) Hives/Rash Penicillins Adverse Reaction (Verified 04/26/23 03:17) Hives/Rash shrimp Adverse Reaction (Verified 04/26/23 03:17) GI pain Home Medications: Amlodipine [Norvasc*] 10 mg PO 04/26/23 Losartan Potassium [Cozaar] 100 PO DAILY 04/26/23 Rizatriptan Benzoate [Rizatriptan] 10 PO TID 04/26/23 Topiramate [Topamax] 25 PO DAILY 04/26/23 hydroCHLOROthiazide [Hydrochlorothiazide] 25 PO DAILY 04/26/23 - Past Medical/Surgical History -: Hypertension -: Back surgery--1979 -: Neck sugery--2016 - Family History Father Medical History: Hypertension, Diabetes - Social History Smoking Status: Current some day smoker Alcohol use: No CD- Drugs: No Caffeine use: No Place of Residence: Home Review of Systems General: Unremarkable Physical Examination Temp Pulse Resp BP Pulse Ox 97.8 F 76 18 132/88 96 04/29/23 08:36 04/29/23 08:36 04/29/23 08:36 04/29/23 08:36 04/29/23 08:36 General: Alert, Oriented x3 Respiratory: Clear to auscultation bilaterally, Friction rub Cardiovascular: Regular rate/rhythm, Normal S1 S2 Gastrointestinal: Normal bowel sounds, Soft and benign, Non-distended - Problems (1) Pulmonary hypertension Current Visit: Yes Status: Acute Plan: Patient is 67 years of age admitted with shortness of breath that tested positive for COVID chest x-ray shows cardiomegaly no evidence of interstitial lung disease CT scan of the chest reviewed no evidence of COVID-pneumonia he does have some groundglass changes possible CHF has renal insufficiency no evidence of sepsis echocardiogram MILDLY DEPRESSED LEFT VENTRICULAR EJECTION FRACTION 45-50% WITH MILD GLOBAL HYPOKINESIS 2. MODERATE CONCENTRIC LEFT VENTRICULAR HYPERTROPHY 3. MODERATE DIASTOLIC DYSFUNCTION 4. LEFT ATRIAL ENLARGEMENT 5. MILD TRICUSPID REGURGITATION, MITRAL REGURGITATION, PULMONIC INSUFFICIENCY 6. MODERATE AORTIC INSUFFICIENCY 7. SEVERE PULMONARY HYPERTENSION WITH RIGHT VENTRICULAR SYSTOLIC PRESSURE GREATER THAN 60 mmHg I strongly suspect t pulmonary hypertension is secondary to diastolic heart failure needs to be corrected he also has renal insufficiency will need diuretic may have underlying coronary artery disease which also needs to be evaluated vital signs reviewed oxygenation satisfactory renal function is improving White count is normal continue with diuretics and afterload reduction
--- NOTE | 2023-04-29 14:24 | EKG ---
Test Date: 2023-04-25 Test Time: 19:30:43 Ct Scan Special Procedures Technologist: MEASUREMENT RESULTS: Intervals: Rate: 98 LA: 182 QRSD: 94 QT: 358 QTc: 457 [place]: P: 65 LA: 182 QRS: 46 T: 174 INTERPRETIVE STATEMENTS: Normal sinus rhythm Possible Left atrial enlargement ST & T wave abnormality, consider lateral ischemia Abnormal ECG No previous ECG available for comparison Electronically Signed On 04-29-23 14:14:06 DELIVERY AND MAIL [employer]ORTER by Sheldon Valle
[2023-04-29] MEDS: ACETAMINOPHEN 500 MG TAB PO PRN (19:12)
--- NOTE | 2023-04-29 23:01 | PN ---
Date of Progress Note: 04/29/2023 Subjective: Acute kidney injury, elevated BUN and creatinine. Review of Systems: Patient denies chest pain, palpitation. Physical Examination: General: Not in acute distress. Lungs: Normal respiratory effort. Heart: S1, S2. Extremities: No edema. Impression And Plan: 1. history of right kidney atrophy and normal left kidney 13.2 cm in length. Acute kidney injury is due to acute tubular necrosis. Renal function has plateaued. Electrolytes are stable and patient does not have uremic symptoms. Workup was ordered to rule out allergic interstitial nephritis. 2. Severe pulmonary hypertension. Etiology unclear. Further recommendation from Primary Team and Pulmonary Team. The patient underwent a chest x-ray and follow up chest x-ray will be ordered by primary team. 3. History of cigarette smoking and recent COVID infection. 4. Hypertension, controlled. Continue blood pressure medication. Patient is on diuretics. 5. Congestive heart failure exacerbation with cardiorenal syndrome. 6. Acute kidney injury. Patient is on Lasix IV b.i.d. He is feeling better. The patient was switched from normal saline to D5W. Continue to monitor fluid balance. Avoid nephrotoxic medication. Monitor urine electrolytes. 7. 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 The patient will follow up with Cardiology. Repeat panel will be done outpatient. The patient may need a renal artery angiogram. Continue to add IV fluids prior to the catheterization and angiogram. Mucomyst as needed. LUIS FERNANDO/BAMBI Voice ID: [id number] Report ID: [id number] NAOMI
[2023-04-29] MEDS: HYDRALAZINE HCL 20 MG/ML VIAL IV PRN (23:30)
[2023-04-29] MEDS: MORPHINE 2 MG/ML SYR IV PRN (23:36)
[2023-04-30 06:44] LABS: Hematocrit 35.5 % (39.6-49.0); MCV 83.1 fL (80-100); MPV 7.6 fL (7.6-11.3); Platelets 260 thou/uL (152-406); RBC Red Blood Cell Count 4.27 M/uL (4.33-5.43)
[2023-04-30 07:00] LABS: Magnesium 2.4 mg/dL (1.6-2.4); Potassium 3.9 mEq/L (3.5-5.1)
--- NOTE | 2023-04-30 08:08 | P.PN ---
Date of Service: 04/30/23 Subjective: Feeling a little better Breathing a little more comfortably today; currently on 2L NC swelling in legs continues to improve pending left & right heart cath; ~Monday 6L emptied ~last 24 hours per I/Os ROS: 10 point ROS as noted above, otherwise negative Physical Exam: GEN: Alert, oriented, NAD HEENT: Normal conjunctiva, sclera anicteric CV: Regular rate and rhythm, 1-2+ BLE edema up to knee bilaterally Pulm: Non-labored respirations on 2L NC, diminished at bases b/l, +b/l crackles/rales ABD: Soft, non-tender, non-distended Neuro: Normal speech, normal affect Townsend in place; placed 04/25 in ED vitals reviewed Problem List: Acute diastolic CHF, new Essential Hypertension, with HTN urgency Severe Pulmonary Hypertension SANTINO on CKD Recent COVID-19 Positive Chronic back pain Constipation Acute diastolic CHF, new Essential Hypertension, with HTN urgency Severe Pulmonary Hypertension Recent COVID-19 Positive reports swelling suddenly developed after Fleet enema a few days prior to admission; denies prior CHF diagnosis / swelling suspect recent covid infection may have played a role CXR (04/25): moderate CHF troponins negative; monitor on tele BNP: 72429 -> 6612 (04/29) echo (04/26): 42% EF, moderate concentric left ventricular hypertrophy, mod diastolic dysfunction, left atrial enlargement, mild TR, mild MR, mild pulmonic insufficiency, moderate aortic insufficiency, severe pulm htn Cardiology consulted Discussed case over phone with Dr. Ortiz, plan for left & right heart cath to further eval PHTN/CAD Tentatively early this week; ~Wednesday 05/02 Continue IV lasix BID Townsend placed 04/25 in ED for accurate I/O's continue for now Breathing/swelling improving confirm home meds, restart as appropriate avoid nephrotoxic meds for now pulm consulted SANTINO on CKD Cr 1.63 -> 1.63 (04/30) denies renal history. but does report >10yrs ago having kidney stones, no recurrence. later said had "right kidney decreased function" renal u/s (04/26): Highly echogenic and atrophic right kidney indicating medical renal disease and likely a lack of function. continue to monitor renal function nephrology consulted IV fluids dc'd (04/29) continue IV lasix BID Code: Full Dispo: Home, ~2-3 days pending left & right heart cath; ~Monday (05/02)
[2023-04-30] MEDS: FUROSEMIDE 40 MG/4 ML VIAL IV SCH ×2 (08:26→17:00)
[2023-04-30] MEDS: carvediloL 6.25 MG TAB PO SCH ×2 (08:26→21:26)
[2023-04-30] MEDS: HYDRALAZINE HCL 25 MG TABLET PO SCH ×3 (08:27→21:26)
[2023-04-30] MEDS: ACETAMINOPHEN 500 MG TAB PO PRN (12:37)
[2023-04-30] MEDS: NA CHLORIDE 0.9% 1,000 ML IV SCH (21:40)
--- NOTE | 2023-04-30 23:25 | PN ---
Date of Progress Note: 04/30/2023 Chief Complaint: Acute kidney injury, elevated BUN and creatinine. Review of Systems: Denies chest pain, palpitation. Physical Examination: Lungs: Clear to auscultation bilaterally. Heart: S1, S2. Abdomen: Soft. Extremities: No edema in both legs present. Impression And Plan: 1.Acute on chronic kidney injury. Patient has history of prior kidney atrophy. Normal left kidney of 13.2 cm in length. Acute kidney injury due to acute tubular necrosis. Renal function is plateaui ng. Electrolytes are stable. Patient was on IV fluids. Currently, IV fluids on hold due to fluid o verload with legs edema. The patient may require Lasix for volume control. 2.Severe pulmonary hypertension. Etiology unclear. Pulmonary Team was consulted. The patient will need followup. 3.History of cigarette smoking and recent COVID infection. Smoking cessation per primary team. 4.Hypertension. Blood pressure controlled. Patient on diuretics. Continue diuretics as needed for volume control. The patient completed IV fluids. 5.Congestive heart failure exacerbation with cardiorenal syndrome. Patient currently is on Lasix 60 mg twice a day. The patient is feeling better and IV fluids were stopped. Avoid nephrotoxic medica tion. 6.Renal vascular disease and atrophy of the right kidney. The patient will follow up with Cardiology. Outpatient workup may be necessary to rule out renal artery stenosis. LUIS FERNANDO/BAMBI Voice ID: [id number] Report ID: [id number]
[2023-05-01 03:40] LABS: Magnesium 2.5 mg/dL (1.6-2.4); Potassium 4.5 mEq/L (3.5-5.1)
[2023-05-01] MEDS ORDERED: ACETYLCYST 20% 800 MG/4 ML VIAL PO SCH (09:00)
[2023-05-01] MEDS: carvediloL 6.25 MG TAB PO SCH ×2 (09:27→19:21)
[2023-05-01] MEDS: HYDRALAZINE HCL 25 MG TABLET PO SCH ×3 (09:28→19:22)
[2023-05-01] MEDS: FUROSEMIDE 40 MG/4 ML VIAL IV SCH ×2 (09:28→16:46)
[2023-05-01] MEDS: ACETAMINOPHEN 500 MG TAB PO PRN ×2 (09:48→16:52)
--- NOTE | 2023-05-01 11:49 | P.PN ---
Date of Service: 05/01/23 Subjective: ROS: 10 point ROS as noted above, otherwise negative Physical Exam: GEN: Alert, oriented, NAD HEENT: Normal conjunctiva, sclera anicteric CV: Regular rate and rhythm, 1-2+ BLE edema up to knee bilaterally Pulm: Non-labored respirations on 2L NC, diminished at bases b/l, +b/l crackles/rales ABD: Soft, non-tender, non-distended Neuro: Normal speech, normal affect Townsend in place; placed 04/25 in ED vitals reviewed Problem List: Acute diastolic CHF, new Essential Hypertension, with HTN urgency Severe Pulmonary Hypertension SANTINO on CKD Recent COVID-19 Positive Chronic back pain Constipation Acute diastolic CHF, new Essential Hypertension, with HTN urgency Severe Pulmonary Hypertension Recent COVID-19 Positive reports swelling suddenly developed after Fleet enema a few days prior to admission; denies prior CHF diagnosis / swelling suspect recent covid infection may have played a role CXR (04/25): moderate CHF troponins negative; monitor on tele BNP: 14067 -> 6612 (04/29) echo (04/26): 42% EF, moderate concentric left ventricular hypertrophy, mod diastolic dysfunction, left atrial enlargement, mild TR, mild MR, mild pulmonic insufficiency, moderate aortic insufficiency, severe pulm htn Cardiology consulted Discussed case over phone with Dr. Ortiz, plan for left & right heart cath to further eval PHTN/CAD Tentatively early this week; ~Wednesday 05/[address] Valle 05/01; plan for stress test tomorrow Continue IV lasix BID Townsend placed 04/25 in ED for accurate I/O's continue for now Breathing/swelling improving confirm home meds, restart as appropriate avoid nephrotoxic meds for now pulm consulted SANTINO on CKD denies renal history. but does report >10yrs ago having kidney stones, no recurrence. later said had "right kidney decreased function" renal u/s (04/26): Highly echogenic and atrophic right kidney indicating medical renal disease and likely a lack of function. continue to monitor renal function nephrology consulted continue IV lasix BID continue IV fluids creatinine slightly worse 05/01 Code: Full Dispo: Home, ~1-2 days pending left & right heart cath; ~Monday (05/02)
[2023-05-01] MEDS: NA CHLORIDE 0.9% 1,000 ML IV SCH (16:52)
[2023-05-01] MEDS: MORPHINE 2 MG/ML SYR IV PRN (21:44)
--- NOTE | 2023-05-02 03:26 | PN ---
Date of Progress Note: 05/01/2023 Chief Complaint: Acute kidney injury, elevated BUN and creatinine. Review of Systems: The patient denies chest pain, palpitation. Physical Examination: Lungs: Clear to auscultation bilaterally. Heart: S1, S2. Abdomen: Soft, benign, nontender. Extremities: Edema in both legs. Impression And Plan: 1.Acute on chronic kidney injury, prerenal azotemia. The patient has history of chronic kidney dise ase and previously he was found to have atrophic left kidney, 13.2 cm in length size. Acute kidney i njury due to acute tubular necrosis. Renal function is plateauing. Electrolytes are stable. The pa tient was on IV fluids, currently IV fluid is on hold. The patient was to have IV fluids prior to IV contrast procedure, and this was postponed and canceled for now. The patient is to have stress test . 2.Severe pulmonary hypertension, etiology unclear. Pulmonary Team and Cardiology are following. 3.History of cigarette smoking and recent COVID infection. Smoking cessation per Primary team. 4.Hypertension. Blood pressure control. 5.Congestive heart failure exacerbation, cardiorenal syndrome. The patient currently is on IV fluid s and plan is to resume Lasix. LUIS FERNANDO/BAMBI Voice ID: [id number] Report ID: [id number]
[2023-05-02 04:39] LABS: Magnesium 2.1 mg/dL (1.6-2.4); Potassium 4.2 mEq/L (3.5-5.1)
[2023-05-02 04:40] LABS: Absolute Lymphocytes (CBC) 1.3 K/uL (0.7-4.9); Hematocrit 36.1 % (39.6-49.0); Lymphocytes % 17.4 % (15.3-44.8); MCV 83.6 fL (80-100); MPV 8.3 fL (7.6-11.3); Platelets 243 thou/uL (152-406); RBC Red Blood Cell Count 4.32 M/uL (4.33-5.43)
[2023-05-02] MEDS: carvediloL 6.25 MG TAB PO SCH ×2 (07:40→19:29)
[2023-05-02] MEDS ORDERED: REGADENOSON 0.4 MG/5 ML SYR IV ONE (07:52)
[2023-05-02] MEDS: HYDRALAZINE HCL 25 MG TABLET PO SCH ×3 (07:56→19:29)
[2023-05-02] MEDS: FUROSEMIDE 40 MG/4 ML VIAL IV SCH (07:56)
--- NOTE | 2023-05-02 07:56 | RAD REPORT ---
EXAM DESCRIPTION: US - Abdomen Pelvis Scan US - 05/02/2023 5:52 am CLINICAL HISTORY: High blood pressure RENAL ARTERY US COMPARISON: Thorax Wo Con dated 04/28/2023 FINDINGS: Severely atrophic right kidney measuring 5.1 cm with severe renal cortical thinning. The l eft kidney measures 12.7 cm with normal echotexture. No hydronephrosis. 1.4 cm cyst in the right kidn ey. Aortic velocity: 52 cm/second Right proximal renal artery: 88 cm/second Right mid renal artery: 53 cm/second Right distal renal artery: 54 cm/second Right renal arcuate artery resistive index: 0.7 Right renal artery / aorta ratio: 1.7 Left proximal renal artery: 88 cm/second Left mid renal artery: 53 cm/second Left distal renal artery: 28 cm/second Left renal arcuate artery resistive index: 0.7 Left renal artery/aorta ratio: 1.2 Normal waveforms demonstrated within the bilateral renal arteries. IMPRESSION: No evidence of hemodynamically significant stenosis within the bilateral renal arteries. Severely atrophic right kidney. No hydronephrosis.
--- NOTE | 2023-05-02 12:45 | TREADPHA ---
DX: ACUTE CONGESTIVE HEART FAILURE, SEVERE HYPERTENSION Date of Study: 05/02/2023 Ht: 5' 9 " Wt: 175 lb 0 oz Consulting Physician: LILLIAM MEDICATIONS: TYLENOL, COREG, LASIX, APRESOLINE, MORPHINE, ZOFRAN HISTORY: 67 YEAR OLD MALE WITH COMPLIANTS OF CHEST PAIN AND SHORTNESS OF BREATH. HISTORY OF HYPERTENSION, CONGESTIVE HEART FAILURE, BACK SURGERY. PHYSICIAL EXAMINATION: RESTING B.P.: 126/86 RESTING H.R.: 75 RESTING EKG: NORMAL SINUS RHYTHM. PREMATURE ATRIAL COMPLEXES AND DIFFUSE ST ABNORMALITY AND LEFT VENTRICULAR HYPERTROPHY PROTOCOL: PHARMACOLOGIC EXERCISE TIME: 3:30 B.P. AT PEAK STRESS: 116/78 IMPRESSION: LEXISCAN INJECTED. CARDIOLITE INJECTED. SEE NUCLEAR MEDICINE REPORT. NO SUPRAVENTRICULAR TACHYCARDIA, VENTRICULAR TACHCARDIA, PREMATURE ATRIAL COMPLEXES, PREMATURE VENTRICULAR COMPLEXES NOTED. PATIENT DENIES CHEST PAIN. PATIENT SAYS STOMACH DISCOMFORT. NON-DIAGNOSTIC ELECTROCARDIOGRAM PART DUE TO ABNORMAL BASELINE.
--- NOTE | 2023-05-02 12:49 | RAD REPORT ---
EXAM DESCRIPTION: NM - Rest Stress Cardiac Imaging - 05/02/2023 10:42 am CLINICAL HISTORY: CP Chest pain. COMPARISON: No comparisons TECHNIQUE: The patient was administered approximately 10.5 mCi of Tc 99m Sestamibi prior to resting SPECT imaging of the heart. The patient was then administered approximately 29.6 mCi of Tc 99m Sestam ibi following exercise or pharmacologic stress. Multiplanar SPECT images were reviewed. FINDINGS: Moderate anteroseptal wall and apical fixed defect. Moderate to large inferior wall basal to apical fixed defect, which could in part be artifactual related to splanchnic uptake. Small to mod erate reversible defect involving the remainder of the interventricular septum mid to apical segments , adjacent to the inferior wall. The end diastolic volume is 250 ml, the end systolic volume is 167 ml, and the ejection fraction is 3 3 %. IMPRESSION: Small to moderate reversible defect involving the interventricular septum adjacent to th e inferior wall, mid to apical segments, concerning for ischemia. Larger areas of fixed defect concerning for infarct involving the anteroseptal and inferior badillo, as well as the apex. Some of the inferior wall defect may be artifact related. Reduced left ventricular ejection fraction, 33%.
[2023-05-02] MEDS: FUROSEMIDE 40 MG TABLET PO SCH (16:20)
--- NOTE | 2023-05-02 17:05 | P.PN ---
Subjective Date of Service: 05/02/23 Chief Complaint: SOB Patient denies any complaint today. He states he feels much better. Bilateral lower extremity swelling resolved. Physical Examination - Vital Signs Temperature: 97.1 F Blood Pressure: 146/98 Pulse: 76 Respirations: 18 Pulse Ox (%): 96 Assessment And Plan - Plan Physical Exam: GEN: Alert, oriented, NAD CV: Regular rate and rhythm, BLE edema improved. Pulm: diminished at bases b/l, mild bibasilar rales. ABD: Soft, non-tender, non-distended Neuro: Normal speech, no focal motor deficit. Townsend in place; placed 04/25 in ED vitals reviewed Problem List: Acute diastolic CHF, new Essential Hypertension, with HTN urgency Severe Pulmonary Hypertension SANTINO on CKD Recent COVID-19 Positive Chronic back pain Constipation Acute diastolic CHF, new Essential Hypertension, with HTN urgency Severe Pulmonary Hypertension Recent COVID-19 Positive reports swelling suddenly developed after Fleet enema a few days prior to admission; denies prior CHF diagnosis / swelling suspect recent covid infection may have played a role CXR (04/25): moderate CHF troponins negative; monitor on tele BNP: 19251 -> 6612 (04/29) echo (04/26): 42% EF, moderate concentric left ventricular hypertrophy, mod diastolic dysfunction, left atrial enlargement, mild TR, mild MR, mild pulmonic insufficiency, moderate aortic insufficiency, severe pulm htn Cardiology Dr. Valle is following Positive stress test Cardiac catheterization per Dr. Valle IV Lasix transition to p.o. Lasix. Townsend in place. Continue hydralazine and Coreg for hypertension and heart failure. Pulmonary input appreciated. SANTINO on CKD renal u/s (04/26): Highly echogenic and atrophic right kidney indicating medical renal disease. No significant change in serum creatinine overall. continue to monitor renal function. Cardiology is planning cardiac catheterization Nephrology is following IV Lasix transition to oral Lasix. Code: Full Dispo: Home. DVT prophylaxis: Hold anticoagulation for impending procedure.
--- NOTE | 2023-05-02 18:13 | PN ---
Date of Progress Note: 05/02/2023 Subjective: The patient was admitted to the hospital with acute kidney injury and COVID pneumonia. Patient had been treated. The patient had his acute kidney injury was prerenal. Kidney function normalized. Physical Examination: Vital Signs: When I saw the patient, blood pressure 182/85, pulse of 74, afebrile. Chest: Clear to auscultation. Heart: S1, S2. Regular. Abdomen: Soft, nontender. Extremities: No edema. Neurologic: Alert, pleasantly confused. Laboratory Data: Sodium 138, potassium 3.5, bicarb 26, BUN 6, creatinine 0.6, calcium 7.8, phosphorus 2, magnesium 1.7. Current Medications: The patient on, it includes: 1. Albuterol. 2. Cefepime. 3. Hydralazine 25 daily. 4. Losartan 100. 5. Zoloft. 6. Sodium bicarb. 7. Carafate. 8. Pantoprazole. Assessment And Plan: 1. Acute kidney injury secondary to prerenal, recovered, resolved. 2. Hypokalemia, hypomagnesemia, hypophosphatemia. I am going to supplement. 3. Hypertension, not controlled. I am going to go ahead and discontinue IV fluid. We will increase hydralazine to t.i.d. and we will follow up response for the patient. 4. Septic shock, recovered. 5. Renal cyst, simple. We will follow up. 6. Hyponatremia, resolved. time spend exam the patient face to face , reviewing data lab and radiology , placing order discussing with the family , Nursing staff and hospitalist >35 min CALLIE Voice ID: [id number] Report ID: [id number] MTDD
--- NOTE | 2023-05-02 18:23 | PN ---
Date of Progress Note: 05/02/2023 Subjective: The patient was admitted to the hospital with acute kidney injury on solitary kidney. With chronic kidney disease and CHF exacerbation cardio renal. The patient was treated, stabilized, kidney function plateaued. Physical Examination: Vital Signs: Blood pressure 141/91, pulse of 75, afebrile. Chest: Clear to auscultation. Heart: S1, S2. Systolic murmur. Abdomen: Soft, nontender. Extremities: No edema. Neurologic: Alert. No focality. Laboratory Data: Hemoglobin 11.5, sodium 138, potassium 4.2, bicarb 28, BUN 39, creatinine down to 1.6, GFR of 46, calcium 9.3, magnesium 2.1. Assessment And Plan: 1. Acute kidney injury secondary to cardio renal on the recovery. We will continue to monitor still pending possible cardiac cath. We will follow up with Cardiology. 2. I am going to continue to monitor the patient. If the patient needing cardiac cath, we will start the patient on the Mucomyst. 3. Hypertension, controlled, optimal. Continue current medication. 4. Congestive heart failure with exacerbation. The patient normal volume. I am going to switch the Lasix to oral and we will follow up. 5. COVID as by primary. time spend exam the patient face to face , reviewing data lab and radiology , placing order discussing with the family , Nursing staff and hospitalist >35 min CALLIE Voice ID: [id number] Report ID: [id number] MTDD
[2023-05-02] MEDS: ACETAMINOPHEN 500 MG TAB PO PRN (19:28)
[2023-05-02] MEDS: MORPHINE 2 MG/ML SYR IV PRN (21:25)
[2023-05-03] MEDS: carvediloL 6.25 MG TAB PO SCH ×2 (09:00→21:19)
[2023-05-03] MEDS: HYDRALAZINE HCL 25 MG TABLET PO SCH ×3 (09:26→21:19)
[2023-05-03] MEDS: FUROSEMIDE 40 MG TABLET PO SCH ×2 (09:26→17:20)
[2023-05-03] MEDS: ACETAMINOPHEN 500 MG TAB PO PRN (09:30)
--- NOTE | 2023-05-03 15:50 | PN ---
Date of Progress Note: 05/03/2023 Subjective: The patient was admitted to the hospital with the COVID pneumonia and cardiorenal syndrome. Patient planned for cardiac cath. Objective: Vital Signs: Blood pressure 120/76, pulse of 66. Chest: Clear to auscultation. Heart: S1, S2. Systolic murmur. Abdomen: Soft, nontender. Extremities: No edema. Neurologic: Alert. No focality. Current Medications: Carvedilol 6.25 b.i.d., hydralazine 25 t.i.d., Lasix 40 b.i.d., Laboratory Data: Hemoglobin 11.5, sodium 138, potassium 4, bicarb 29, BUN 29, creatinine 1.6, calcium 8.9. Assessment And Plan: 1. Acute kidney injury secondary to cardiorenal, poor perfusion, acute tubular necrosis, on the recovery, currently normal volume. I am going to continue current diuresis. Patient planned for cardiac cath. Patient is going to go with cardiac cath. We will hydrate the patient with normal saline 50 per hour 10 hours before the catheterization and 10 hours after and we will hold the Lasix on that day and we will follow up. 2. Hypertension, controlled, optimal. Continue current treatment. 3. Congestive heart failure with exacerbation, currently normal volume. Continue current diuresis. We will hold it if cardiac cath happen. 4. COVID, as by primary. time spend exam the patient face to face , reviewing data lab and radiology , placing order discussing with the family , Nursing staff and hospitalist >35 min CALLIE Voice ID: [id number] Report ID: [id number] NAOMI
--- NOTE | 2023-05-03 17:09 | P.PN ---
Subjective Date of Service: 05/03/23 Chief Complaint: SOB Patient denies any complaint today. Bilateral lower extremity swelling resolved. He denies any shortness of breath. Physical Examination - Vital Signs Temperature: 99.3 F Blood Pressure: 124/77 Pulse: 74 Respirations: 18 Pulse Ox (%): 96 Assessment And Plan - Plan Physical Exam: GEN: Alert, oriented, NAD CV: Regular rate and rhythm, BLE edema improved. Pulm: diminished at bases b/l, mild bibasilar rales. ABD: Soft, non-tender, non-distended Neuro: Normal speech, no focal motor deficit. Townsend in place; placed 04/25 in ED vitals reviewed Problem List: Acute diastolic CHF, new Essential Hypertension, with HTN urgency Severe Pulmonary Hypertension SANTINO on CKD Recent COVID-19 Positive Chronic back pain Constipation Acute diastolic CHF, new Essential Hypertension, with HTN urgency Severe Pulmonary Hypertension Recent COVID-19 Positive CXR (04/25): moderate CHF troponins negative; monitor on tele BNP: 45364 -> 6612 (04/29) echo (04/26): 42% EF, moderate concentric left ventricular hypertrophy, mod diastolic dysfunction, left atrial enlargement, mild TR, mild MR, mild pulmonic insufficiency, moderate aortic insufficiency, severe pulm htn Cardiology Dr. Valle is following Positive stress test Cardiac catheterization per Dr. Valle Continue oral Lasix. Townsend in place. Continue hydralazine and Coreg for hypertension and heart failure. Pulmonary input appreciated. SANTINO on CKD renal u/s (04/26): Highly echogenic and atrophic right kidney indicating medical renal disease. No significant change in serum creatinine overall. continue to monitor renal function. Nephrology is following oral Lasix. Code: Full Dispo: Home.
[2023-05-03] MEDS: MORPHINE 2 MG/ML SYR IV PRN (22:08)
[2023-05-04 04:15] LABS: Absolute Lymphocytes (CBC) 1.5 K/uL (0.7-4.9); Hematocrit 36.1 % (39.6-49.0); Lymphocytes % 19.4 % (15.3-44.8); MCV 82.6 fL (80-100); MPV 8.6 fL (7.6-11.3); Platelets 252 thou/uL (152-406); RBC Red Blood Cell Count 4.37 M/uL (4.33-5.43)
[2023-05-04 04:29] LABS: Potassium 4.2 mEq/L (3.5-5.1)
[2023-05-04] MEDS: ACETAMINOPHEN 500 MG TAB PO PRN (08:30)
[2023-05-04] MEDS: HYDRALAZINE HCL 25 MG TABLET PO SCH ×3 (08:30→19:46)
[2023-05-04] MEDS: carvediloL 6.25 MG TAB PO SCH ×2 (08:30→19:46)
[2023-05-04] MEDS: FUROSEMIDE 40 MG TABLET PO SCH (09:00)
[2023-05-04] MEDS: NA CHLORIDE 0.9% 1,000 ML IV SCH ×2 (13:27→23:00)
--- NOTE | 2023-05-04 14:59 | PN ---
Date of Progress Note: 05/04/2023 Subjective: The patient was admitted to the hospital with acute kidney injury secondary to cardioren al. Patient has [id number] MO. Patient had COVID. Patient planned for cardiac cath today. Objective: Vital Signs: Blood pressure 120/78, pulse of 56, afebrile. Chest: Clear to auscultation. Heart: S1, S2. Systolic murmur. Abdomen: Soft, nontender. Extremities: No edema. Neurologic: Alert. No focality. Laboratory Data: Hemoglobin 11.7, sodium 135, potassium 4.2, bicarb 26, BUN 36, creatinine 1.5, calc ium 8.7, GFR of 48. Current Medications: The patient on, it includes carvedilol 6.25 b.i.d., hydralazine 25 t.i.d., Zofr an. Assessment And Plan: 1.Acute kidney injury secondary to cardiorenal, currently normal volume. I am going to go ahead and hold the Lasix today as the patient planned for cardiac cath. We will start the patient on gentle h ydration of normal saline and we will continue the normal saline 50 per hour after the cath for 10 ho urs. Then, we will resume Lasix, discontinue IV fluid. 2.Hypertension, controlled, optimal. We will adjust the Lasix as above. 3.Congestive heart failure with exacerbation, resolved. We will resume Lasix after cardiac cath. H old it for the time being. 4.Gvn-LF-hkxptgwyt myocardial infarction. Congestive heart failure exacerbation. As above. Follow up with Cardiology. Cardiac cath today. EVA/BAMBI Voice ID: [id number] Report ID: [id number]
--- NOTE | 2023-05-04 15:25 | P.PN ---
Subjective Date of Service: 05/04/23 Chief Complaint: SOB Patient denies any complaint today. Bilateral lower extremity swelling resolved. He denies any shortness of breath. Physical Examination - Vital Signs Temperature: 98.1 F Blood Pressure: 120/78 Pulse: 56 Respirations: 15 Pulse Ox (%): 99 Assessment And Plan - Plan Physical Exam: GEN: Alert, oriented, NAD CV: Regular rate and rhythm, BLE edema improved. Pulm: CTA B/L. ABD: Soft, non-tender, non-distended Neuro: Normal speech, no focal motor deficit. Townsend in place; placed 04/25 in ED vitals reviewed Problem List: Acute diastolic CHF, new Essential Hypertension, with HTN urgency Severe Pulmonary Hypertension SANTINO on CKD Recent COVID-19 Positive Chronic back pain Constipation Acute diastolic CHF, new Essential Hypertension, with HTN urgency Severe Pulmonary Hypertension Recent COVID-19 Positive CXR (04/25): moderate CHF troponins negative; monitor on tele BNP: 71860 -> 6612 (04/29) echo (04/26): 42% EF, moderate concentric left ventricular hypertrophy, mod diastolic dysfunction, left atrial enlargement, mild TR, mild MR, mild pulmonic insufficiency, moderate aortic insufficiency, severe pulm htn Cardiology Dr. Valle is following Positive stress test Cardiac catheterization today per Dr. Valle Continue oral Lasix. Townsend in place. Continue hydralazine and Coreg for hypertension and heart failure. Pulmonary input appreciated. SANTINO on CKD renal u/s (04/26): Highly echogenic and atrophic right kidney indicating medical renal disease. Slight decrease in serum creatinine. continue to monitor renal function. Nephrology is following. On oral Lasix. Code: Full Dispo: Home.
[2023-05-04] MEDS ORDERED: HEPA 1000U/500MLS 2,000 UNIT/1,000 ML BAG IV ONE (15:38)
[2023-05-04] MEDS ORDERED: LIDOCAINE 1% 20 ML MDV ONE (15:38)
[2023-05-04] MEDS ORDERED: FENTANYL CITR 100 MCG/2 ML ONE (15:38)
[2023-05-04] MEDS ORDERED: HEPARIN 5000 UNIT/ML 1 ML VIAL ONE (15:39)
[2023-05-04] MEDS ORDERED: VERAPAMIL HCL 10 MG/4 ML VIAL IV ONE (15:39)
[2023-05-04] MEDS ORDERED: MIDAZOLAM HCL 2 MG/2 ML INJ ONE (15:39)
[2023-05-04] MEDS ORDERED: NITROGLYCERIN/D5W 50 MG/250 ML BTL IV ONE (15:39)
[2023-05-04] MEDS ORDERED: DIPHENHYDRAMINE 50 MG/ML VIAL ONE (16:03)
[2023-05-04] MEDS ORDERED: METHYLPREDNISOLONE 125 MG INJ ONE (16:04)
[2023-05-04] MEDS ORDERED: HYDRALAZINE HCL 20 MG/ML VIAL ONE (16:22)
--- NOTE | 2023-05-04 17:17 | OP ---
Date of Procedure: 05/04/2023 Surgeon: STEPHANE VYAS Procedure Performed: 1.Coronary angiogram. 2.Left heart catheterization. 3.Right heart catheterization. Indications: 1.New onset systolic heart failure. 2.Abnormal stress test. Access: 1.Right radial artery 6-Maltese closed with TR band. 2.Right IJ 7-Maltese closed with manual pressure. Complications: None. Bleeding: Less than 20 mL. Anesthesia: Total sedation time was 1 hour. Description Of Procedure: After risks, benefits, alternatives were explained, patient agreed to proc edure and signed informed consent. Patient was brought into cardiac catheterization laboratory, prep ped and draped in the usual sterile fashion. Then, I accessed right radial artery using pediatric mi cropuncture kit, placed 6-Maltese Slender sheath and then I accessed the right IJ using micropuncture kit, ultrasound guidance, and placed a 7-Maltese [place] sheath and took a balloon tipped 7-Maltese Sw an catheter through the IJ access into the right atrium, right ventricle, PA and wedge, obtained wave form and pressure and again thermodilutional cardiac output was obtained and then removed the [place] an d then I took a 5-Maltese [place] 4.0 catheter into the aortic root over a J-wire, engaged left main and then right coronary artery, took standard views and the catheter was pushed over the wire into the L V, measured the LVEDP. Pullback did not record any gradient, removed the catheter and the sheath and placed TR band with good hemostasis. Findings: 1.Left main; very large and normal. 2.LAD; very large vessel, proximal 50%, mid 50% stenosis and mid to distal 30% stenosis. Diagonal b ranches are large with luminal irregularities. 3.Left circumflex; it is very large and dominant artery and the OM1 branch has proximal 40%, mid 30% , distal 50% stenosis and there is a branch that comes off the OM that has ostial 80%, but this is sm all. 4.RCA; it is small, nondominant, with luminal irregularities. 5.Elevated LVEDP at 30 to 35 mmHg. Right heart cath numbers: 1.RA pressure was 19/17, mean of 15 mmHg. 2.RV pressure was 70/9 with a mean of 19 mmHg. 3.PA pressure was 71/26 with a mean of 43 mmHg. 4.Pulmonary wedge pressure was 30 mmHg. 5.LVEDP was between 30 and 35 mmHg. Conclusion: 1.Moderate coronary artery disease, nonobstructive. 2.Severely elevated filling pressures. Recommendation: Aggressive diuretics. SR/MODL Voice ID: [id number] Report ID: [id number]
[2023-05-04] MEDS ORDERED: ACETAMINOPHEN 325 MG TABLET ONE (17:47)
--- NOTE | 2023-05-04 18:16 | P.DS ---
Admission Date: 04/25/23 Discharge Date: 05/05/23 Disposition: ROUTINE DISCHARGE Discharge Condition: FAIR Reason for Admission: SOB Brief History of Present Illness: 67 yrs old Male with hypertension chronic back pain presents to ER via Ambulatory with complaints of shortness of breath after testing positive for Covid, He denied any chest pain. Patient states that he tested positive for COVID in a outside facility. Patient started having shortness of breath which progressively worsened over a few days. He also reported lower extremities swelling and constipation. Patient was assessed in the ER and was found to have pulmonary vascular congestion on her chest x-ray, and had accelerated hypertension. The COVID test done in the ER was negative. Patient was hospitalized for further management. Hospital Course: Diagnosis Acute diastolic CHF, new Essential Hypertension, with HTN urgency Severe Pulmonary Hypertension SANTINO on CKD Recent COVID-19 Positive Chronic back pain Constipation Acute diastolic CHF, new Essential Hypertension, with HTN urgency Severe Pulmonary Hypertension Recent COVID-19 Positive CXR (04/25): moderate CHF Troponins negative; monitor on tele BNP: 29095 -> 6612 (04/29) echo (04/26): 42% EF, moderate concentric left ventricular hypertrophy, mod diastolic dysfunction, left atrial enlargement, mild TR, mild MR, mild pulmonic insufficiency, moderate aortic insufficiency, severe pulm htn Cardiology Dr. Valle evaluated patient and assisted with management. Positive stress test Dr. Valle performed cardiac catheterization. Patient noted to have elevated filling pressures and moderate coronary artery disease. Dr. Valle recommended aggressive diuresis. Patient treated with IV Lasix and transitioned to oral Lasix. Patient discharged with oral Lasix. Please see discharge medication reconciliation. Renal function trended down slightly. Townsend catheter was in place for strict output monitoring. Townsend catheter discontinued on discharge. Patient voided after Townsend catheter removal. Amlodipine and losartan and hydrochlorothiazide discontinued due to SANTINO and peripheral edema Antihypertensives were replaced with hydralazine and Coreg for hypertension and heart failure. Patient was normotensive on the hydralazine and Coreg doses. Pulmonary saw patient and assisted with management. SANTINO on CKD renal u/s (04/26): Highly echogenic and atrophic right kidney indicating medical renal disease. Slight decrease in serum creatinine. Renal function was overall stable. Serum creatinine checked after cardiac catheterization was stable. Hydrochlorothiazide, losartan discontinued due to SANTINO. Nephrology followed patient and assisted with management. Follow-up with nephrology as outpatient. Vital Signs/Physical Exam: Temp Pulse Resp BP Pulse Ox 98.1 F 83 18 135/92 H 99 05/04/23 15:25 05/04/23 18:03 05/04/23 18:03 05/04/23 18:03 05/04/23 15:25 General: Alert, In no apparent distress, Oriented x3 HEENT: Mucous membr. moist/pink Neck: Supple, JVD not distended Respiratory: Normal air movement Cardiovascular: No edema, Regular rate/rhythm, Normal S1 S2 Gastrointestinal: Normal bowel sounds, Soft and benign, Non-distended Musculoskeletal: No swelling Integumentary: No rashes, No cyanosis Neurological: Normal strength at 5/5 x4 extr Laboratory Data at Discharge: WBC 7.60 thou/uL (4.3-10.9) 05/04/23 03:02 Hgb 11.7 g/dL (13.6-17.9) L 05/04/23 03:02 Hct 36.1 % (39.6-49.0) L 05/04/23 03:02 Plt Count 252 thou/uL (152-406) 05/04/23 03:02 PT 13.6 SECONDS (9.5-12.5) H 04/25/23 19:43 INR 1.24 04/25/23 19:43 APTT 30.4 SECONDS (24.3-36.9) 04/25/23 19:43 Sodium 135 mEq/L (136-145) L 05/04/23 03:02 Potassium 4.2 mEq/L (3.5-5.1) 05/04/23 03:02 BUN 36 mg/dL (7-18) H 05/04/23 03:02 Creatinine 1.59 mg/dL (0.70-1.30) H 05/04/23 03:02 Glucose 81 mg/dL (74-106) 05/04/23 03:02 Phosphorus 3.5 mg/dL (2.5-4.9) 04/28/23 09:34 Magnesium 2.1 mg/dL (1.6-2.4) 05/02/23 04:08 Total Bilirubin 0.8 mg/dL (0.2-1.0) 04/26/23 07:12 AST 22 U/L (15-37) 04/26/23 07:12 ALT 30 U/L (16-61) 04/26/23 07:12 Alkaline Phosphatase 83 U/L (45-117) 04/26/23 07:12 Home Medications: Rizatriptan Benzoate [Rizatriptan] 10 PO TID 04/26/23 Topiramate [Topamax] 25 PO DAILY 04/26/23 Hydralazine [Apresoline*] 25 mg PO TID #90 tab 05/04/23 carvediloL [Coreg*] 6.25 mg PO BID #60 tab 05/04/23 Furosemide [Lasix] 40 mg PO BIDL #37 tab 05/05/23 New Medications: Hydralazine [Apresoline*] 25 mg PO TID #90 tab carvediloL [Coreg*] 6.25 mg PO BID #60 tab Furosemide [Lasix] 40 mg PO BIDL #37 tab Diet: AHA Activity: Ad abbie Followup: Adriana Schwab MD [ACTIVE - CAN ADMIT] - (Within 2 weeks) NONE,NONE [Primary Care Provider] - 1-2 Weeks Sheldon Valle MD [ACTIVE - CAN ADMIT] - (Within 2 weeks.) Time spent managing pt's care (in minutes): 36
[2023-05-05] MEDS: MORPHINE 2 MG/ML SYR IV PRN (00:30)
[2023-05-05 07:32] LABS: Absolute Lymphocytes (CBC) 0.6 K/uL (0.7-4.9); Hematocrit 37.8 % (39.6-49.0); Lymphocytes % 8.5 % (15.3-44.8); MCV 83.2 fL (80-100); MPV 7.9 fL (7.6-11.3); Platelets 265 thou/uL (152-406); RBC Red Blood Cell Count 4.55 M/uL (4.33-5.43)
[2023-05-05 08:33] LABS: Potassium 4.5 mEq/L (3.5-5.1)
[2023-05-05] MEDS: NA CHLORIDE 0.9% 1,000 ML IV SCH (09:00)
[2023-05-05 09:58] VITALS: BP 162/97; TEMP 97.7
[2023-05-05 10:14] VITALS: O2SAT 95
[2023-05-05] MEDS: carvediloL 6.25 MG TAB PO SCH (10:36)
[2023-05-05] MEDS: ACETAMINOPHEN 500 MG TAB PO PRN (10:37)
[2023-05-05] MEDS: HYDRALAZINE HCL 25 MG TABLET PO SCH (10:37)
--- NOTE | 2023-05-05 13:39 | P.PN ---
Subjective Date of Service: 05/05/23 Chief Complaint: SOB Subjective: No new changes Physical Examination - Vital Signs Temperature: 97.7 F Blood Pressure: 162/97 Pulse: 79 Respirations: 18 Pulse Ox (%): 100 - Physical Exam General: Other (appears his stated age) HEENT: Atraumatic, Normocephalic Neck: Supple Respiratory: Other (symmetric chest expansion) Cardiovascular: No rubs, No murmurs Gastrointestinal: Soft and benign, No rebound Musculoskeletal: No clubbing Integumentary: No warmth Neurological: Normal tone Urinary: Other (no bladder distention) External genitalia: Deferred Rectal: Deferred Assessment And Plan - Plan 1. Acute kidney injury 2/2 CRS1 on chronic kidney disease, solitary L kidney. SCr plateaued at 1.6. Cont lasix 40 mg po bid. [place] po fluid intake. 2. Severe pulmo Htn, unclear etiology. Hx of cig smoking & recent covid infxn. Lasix as above. 3. Hypertension. Cont current med regimen. 4. CHF exacerbation with cardiorenal syndrome. Lasix as above. 5. Hyponatremia. Improved, monitor. Physician Review: Patient Assessed, Agree with Above Assessment and Plan
== END 2023-05-05 15:22 | disposition home or self-care (01) | DRG 286 ==
LOC: ER 18:22 → ERHOLD 20:41 → 4TH 23:11
PROVIDERS: ADMIT Family Medicine; ATTEND Internal Medicine
PROC: 4A023N8 Measurement of Cardiac Sampling and Pressure, Bilateral, Percutaneous Approach (ICD-10-PCS; principal; 2023-05-04)
PROC: B2111ZZ Fluoroscopy of Multiple Coronary Arteries using Low Osmolar Contrast (ICD-10-PCS; 2023-05-04)
DX: I13.0 Hypertensive heart and chronic kidney disease with heart failure and stage 1 through stage 4 chronic kidney disease, or unspecified chronic kidney disease (principal); I50.33 Acute on chronic diastolic (congestive) heart failure; J96.01 Acute respiratory failure with hypoxia; N17.9 Acute kidney failure, unspecified; E87.1 Hypo-osmolality and hyponatremia; N18.30 Chronic kidney disease, stage 3 unspecified; I16.0 Hypertensive urgency; I27.20 Pulmonary hypertension, unspecified; I08.3 Combined rheumatic disorders of mitral, aortic and tricuspid valves; G89.29 Other chronic pain; M54.9 Dorsalgia, unspecified; K59.00 Constipation, unspecified; F17.200 Nicotine dependence, unspecified, uncomplicated; Z88.0 Allergy status to penicillin; Z88.1 Allergy status to other antibiotic agents; Z11.52 Encounter for screening for COVID-19; Z86.16 Personal history of COVID-19; Z91.013 Allergy to seafood; Z79.899 Other long term (current) drug therapy
CPT/HCPCS: 36415; 51702; 71045; 71250; 76770; 76937; 78452; 80048; 80053; 80069; 81001; 83605; 83735; 83880; 83935; 84132; 84300; 84484; 85025; 85027; 85610; 85730; 87040; 87635; 93005; 93017; 93306; 93460; 93975; 94760; 96374; 96375; 99285; A9500; C1893; J0360; J1200; J1644; J1940; J2001; J2250; J2270; J2785; J2930; J3010; J7030; Q9966

== ENCOUNTER 2024-07-15 13:00 | Day surgery (SDC) | payer OTHER ==
[2024-07-12 15:30] LABS: Absolute Basophils 0.1 K/uL (0-0.5); Absolute Eosinophils 0.4 K/uL (0-0.5); Absolute Lymphocytes (CBC) 1.9 K/uL (0.7-4.9); Absolute Monocytes 0.5 K/uL (0.1-1.3); Absolute Neutrophil 5.8 K/uL (1.8-8.0); Basophils % 0.9 % (0-1.3); Eosinophils % 5.1 % (0-4.4); Hematocrit 45.3 % (39.6-49.0); Hemoglobin 15.2 g/dL (13.6-17.9); Lymphocytes % 21.9 % (15.3-44.8); MCH 30.3 pg (27.0-35.0); MCHC 33.7 g/dL (32.0-36.0); MCV 90.1 fL (80-100); MPV 8.3 fL (7.6-11.3); Monocytes % 6.1 % (3.3-12.3); Nucleated Red Blood Cells % 0.1 % (0-0); Platelets 327 thou/uL (152-406); RBC Red Blood Cell Count 5.03 M/uL (4.33-5.43); Red Cell Distribution Width 14.1 % (12.1-15.2)
--- NOTE | 2024-07-12 15:31 | RAD REPORT ---
Procedure: Chest Pa And Lat (2 Views) HISTORY: Preop for cardiac catheterization. Hypertension COMPARISON: 2022 FINDINGS: The lungs appear clear of acute infiltrate. No significant pleural effusion noted. The heart is mildly to moderately enlarged.. IMPRESSION: No acute abnormality is displayed.
[2024-07-12 15:39] LABS: PT Prothrombin Time 10.8 SECONDS (9.4-12.5); PTT, Activated Partial Thromb 30.3 SECONDS (24.3-36.9); Protime INR 1.03
[2024-07-15] MEDS ORDERED: NA CHLORIDE 0.9% 500 ML ONE (13:34)
[2024-07-15 14:56] VITALS: TEMP 98.1
[2024-07-15] MEDS ORDERED: HEPARIN 10,000 UNIT/10 ML VIAL IV ONE (16:08)
[2024-07-15] MEDS ORDERED: LIDOCAINE 1% 20 ML MDV ONE (16:08)
[2024-07-15] MEDS ORDERED: VERAPAMIL HCL 10 MG/4 ML VIAL IV ONE (16:08)
[2024-07-15] MEDS ORDERED: HEPARIN 5000 UNIT/ML 1 ML VIAL ONE (16:08)
[2024-07-15] MEDS ORDERED: HEPA 1000U/500MLS 2,000 UNIT/1,000 ML BAG IV ONE (16:08)
[2024-07-15] MEDS ORDERED: MIDAZOLAM HCL 2 MG/2 ML INJ ONE (16:09)
[2024-07-15] MEDS ORDERED: FENTANYL CITR 100 MCG/2 ML ONE (16:09)
[2024-07-15] MEDS ORDERED: METHYLPREDNISOLONE 125 MG INJ ONE (16:23)
[2024-07-15] MEDS ORDERED: DIPHENHYDRAMINE 50 MG/ML VIAL ONE (16:23)
[2024-07-15] MEDS ORDERED: HYDRALAZINE HCL 20 MG/ML VIAL ONE (16:37)
[2024-07-15] MEDS ORDERED: CLOPIDOGREL 75 MG TABLET ONE (16:45)
[2024-07-15] MEDS ORDERED: ACETAMINOPHEN 325 MG TABLET ONE (19:17)
[2024-07-15 20:33] VITALS: BP 156/90; O2SAT 97
--- NOTE | 2024-07-16 03:43 | OP ---
Date of Procedure: 07/15/2024 Surgeon: STEPHANE VYAS Procedures Performed: 1.Selective coronary angiogram. 2.Percutaneous coronary intervention of severe proximal right coronary artery stenosis, used 3.0 x 1 2 mm Synergy drug-eluting stent. Indication: Chest pain with abnormal stress test showing inferior wall ischemia. Access: Right radial artery 6-New Zealander, closed with TR band. Complications: None. Bleeding: Less than 50 mL. Anesthesia: Total sedation time is 45 minutes. Used fentanyl, Versed. Description Of Procedure: After risks, benefits, and alternatives were explained, patient agreed to procedure and signed informed consent. The patient was premedicated with prednisone and Benadryl due to iodine allergy and then I accessed right radial artery using pediatric micropuncture kit, placed a 6-[place] Ze[place]ander Slender sheath, and took 5-[place]ander [place] 4 catheter into aortic root over a J-wire, engaged the RCA, took standard views, and then exchanged for 6-[place] JL3.5 catheter, engaged the left main, took standard views and then exchanged for 6-[place] JR4 guide, engaged the RCA, gave systemic hepari n to assure his level above 250 throughout the procedure. He was loaded with Plavix 600 mg. He alre danial we took aspirin today and the JR4 engaged the RCA and took Runthrough wire into the RCA, placed i t distally. Using a 3.0 Compliant balloon, lesion expanded very well and then I placed 3.0 x 12 mm S ynergy drug-eluting stent, excellent expansion, 0% residual stenosis. Wire was removed. Final angio gram was satisfactory. I removed the guide and the sheath, placed TR band with good hemostasis. Findings: 1.Left main: Large and normal. 2.LAD: Very large vessel, proximal to mid 40% to 50%. There are actually 3 tandem lesions. ____ bifurcation is 40% and distally, there is above 50% focal stenosis. 3.Left circumflex: Large and dominant. OM branch has 50% to 60% proximally and there is another OM 2 branch has proximal 50% stenosis. 4.RCA: It has proximal 80% stenosis, status post successful PCI as above. Conclusion: 1.Severe proximal RCA stenosis, status post successful PCI as above. 2.Moderate coronary artery disease elsewhere. Plan: Aspirin, Plavix, high-dose statin, and medical management. SR/MODL Voice ID: [id number] Report ID: [id number]
--- NOTE | 2024-07-17 12:46 | EKG ---
Test Date: 2024-07-12 Test Time: 15:45:57 Architectural Design Lecturer: THIAGO MEASUREMENT RESULTS: Intervals: Rate: 61 VA: 238 QRSD: 98 QT: 434 QTc: 436 Hurley: P: 67 VA: 238 QRS: 5 T: 195 INTERPRETIVE STATEMENTS: Sinus rhythm with 1st degree AV block Possible Left atrial enlargement Left ventricular hypertrophy with repolarization abnormality Abnormal ECG Compared to ECG 04/25/2023 19:30:43 First degree AV block now present Left ventricular hypertrophy now present Early repolarization now present ST (T wave) deviation no longer present Possible ischemia no longer present Electronically Signed On 07-17-24 12:37:22 COKE DRAWER by Nirmal Krishnan
== END 2024-07-15 20:47 | disposition home or self-care (01) ==
LOC: CCL 13:00
PROVIDERS: ATTEND Internal Medicine
DX: I25.10 Atherosclerotic heart disease of native coronary artery without angina pectoris (principal); I34.0 Nonrheumatic mitral (valve) insufficiency; I35.1 Nonrheumatic aortic (valve) insufficiency; I13.0 Hypertensive heart and chronic kidney disease with heart failure and stage 1 through stage 4 chronic kidney disease, or unspecified chronic kidney disease; I50.21 Acute systolic (congestive) heart failure; N18.9 Chronic kidney disease, unspecified; I27.20 Pulmonary hypertension, unspecified; Z87.891 Personal history of nicotine dependence; Z79.899 Other long term (current) drug therapy; Z88.0 Allergy status to penicillin; Z88.8 Allergy status to other drugs, medicaments and biological substances; Z91.013 Allergy to seafood
CPT/HCPCS: 93005; 85025; 80048; 36415; 85610; 85730; 71046; 93454; 76937; C1893; Q9967; C1725; C9600; J1644; J0360; J2003; J1200; J2250; J3010; J2919; J7040; 99152; 99153